=== PATIENT | male | born 1945 | race Caucasian/White ===

== ENCOUNTER → 2017-01-03 | Outpatient (CLI) | payer OTHER ==
[~2017-01-03] MED LIST: ACT30 PO; ALLO300T2 PO; ASPEC81 PO; GLIP1TAB85 PO; LEVO50TA PO; LSN/10125 PO; SITA100T3 PO
[2017-01-03 15:03] LABS: ESTIMATED AVERAGE GLUCOSE 246 mg/dl; HA1C FLAG Normal (Normal)
[2017-01-03 15:12] LABS: BLOOD UREA NITROGEN 23 mg/dl (7-18); BUN/CREATININE RATIO 17.6 (10-20); CALCIUM 9.8 mg/dl (8.5-10.1); CARBON DIOXIDE 27 mmol/L (21-32); CHLORIDE 103 mmol/L (98-107); GLUCOSE 300 mg/dl (70-99); MAGNESIUM 1.6 mg/dl (1.8-2.4); POTASSIUM 4.1 mmol/L (3.5-5.1); SODIUM 138 mmol/L (136-145)
== END | disposition home or self-care (01) ==
LOC: C.LAB 13:51
PROVIDERS: ATTEND Family Medicine
DX: I10 Essential (primary) hypertension (principal); E03.9 Hypothyroidism, unspecified; E83.42 Hypomagnesemia; E11.9 Type 2 diabetes mellitus without complications

== ENCOUNTER 2017-06-03 19:02 | Emergency (ER) | payer OTHER ==
[~2017-06-03] VITALS: Ht 182.9 cm; Wt 100.0 kg
[2017-06-03 19:12] VITALS: TEMP 36.6; Ht 182.9 cm; Wt 100.0 kg
[2017-06-03 19:32] VITALS: O2SAT 95
[2017-06-03 19:58] LABS: BASO % 0.5 %; BASO ABS # 0.04 K/uL (0-0.2); EOS % 3.7 %; EOS ABS # 0.31 K/uL (0-0.5); HEMATOCRIT 41.6 % (42-52); HEMOGLOBIN 14.6 g/dL (14.0-18.0); IG# 0.02 K/uL (0.00-0.02); LYMPH % 20.9 %; LYMPH ABS # 1.77 K/uL (1.2-3.4); MEAN CELL VOLUME 94.5 fL (80-100); MEAN CORPUSCULAR HEMOGLOBIN 33.2 pg (25-34); MEAN CORPUSCULAR HGB CONC 35.1 g/dl (32-36); MEAN PLATELET VOLUME 10.2 fL (7.4-10.4); MONO % 8.6 %; MONO ABS # 0.73 K/uL (0.11-0.59); NEUT % 66.1 %; NEUT ABS # 5.59 K/uL (1.4-6.5); PLATELET COUNT 172 K/uL (130-400); RED CELL DISTRIBUTION WIDTH CV 13.9 % (11.5-14.5); RED CELL DISTRIBUTION WIDTH SD 47.7 fL (36.4-46.3); WHITE BLOOD COUNT 8.46 K/uL (4.8-10.8)
--- NOTE | 2017-06-03 20:04 | DIAGNOSTIC IMAGING REPORT ---
CHEST ONE VIEW PORTABLE CLINICAL HISTORY: Respiratory distress COMPARISON STUDY: 09/28/2014 FINDINGS: The heart is borderline enlarged. There is no failure. There is a suboptimal inspiration. Bibasilar opacities are likely atelectatic. There is no significant pleural fluid. IMPRESSION: 1. No evidence of failure 2. No evidence of lobar consolidation 3. Bibasilar opacities, likely atelectatic Electronically signed by: Aaron Yoon M.D. 06/03/2017 8:03 PM Dictated Date/Time: 06/03/2017 8:01 PM
[2017-06-03 20:15] LABS: ALBUMIN 3.8 gm/dl (3.4-5.0); BLOOD UREA NITROGEN 15 mg/dl (7-18); CALCIUM 8.9 mg/dl (8.5-10.1); CARBON DIOXIDE 27 mmol/L (21-32); CREATININE 1.34 mg/dl (0.60-1.40); GLUCOSE 255 mg/dl (70-99); POTASSIUM 3.9 mmol/L (3.5-5.1); SODIUM 134 mmol/L (136-145)
[2017-06-03 20:20] LABS: ALKALINE PHOSPHATASE 94 U/L (45-117); ALT/SGPT 40 U/L (12-78); AST/SGOT 25 U/L (15-37); CKMB < 0.5 ng/ml (0.5-3.6); TOTAL PROTEIN 7.8 gm/dl (6.4-8.2)
[2017-06-03 20:29] LABS: INFLUENZA B ANTIGEN Neg for Influ B (NEG)
[2017-06-03] MEDS ORDERED: NVLGI/PEN SC (20:38)
[2017-06-03] MEDS ORDERED: LSN5 PO (20:38)
[2017-06-03] MEDS ORDERED: LEVO75TA5 PO (20:38)
[2017-06-03] MEDS ORDERED: RANI150T2 PO (20:38)
[2017-06-03] MEDS ORDERED: ALL300 PO (20:38)
[2017-06-03] MEDS ORDERED: INSU100I23 SC (20:38)
[2017-06-03] MEDS ORDERED: INDO-22 PO (20:38)
[2017-06-03] MEDS ORDERED: METF500T5 PO (20:38)
[2017-06-03] MEDS ORDERED: SLWMEC PO (20:41)
[2017-06-03] MEDS ORDERED: ASPI81TA28 PO (20:41)
[2017-06-03] MEDS ORDERED: CHOL2000 PO (20:41)
[2017-06-03] MEDS ORDERED: ALBUT/IPRATROP 3MG/0.5MG NEB 3 ML VIAL INH STA (20:44)
[2017-06-03] MEDS ORDERED: ALBUT/IPRATROP 3MG/0.5MG NEB 3 ML VIAL ONE (20:45)
[2017-06-03] MEDS ORDERED: AZITHROMYCIN 250 MG TAB PO STA (20:59)
[2017-06-03] MEDS ORDERED: AZIT-60 PO (21:00)
[2017-06-03] MEDS ORDERED: ALBUTEROL HFA 8 GM INHALER INH ONE (21:00)
[2017-06-03 21:25] VITALS: BP 153/80; PULSE 80; O2SAT 95
--- NOTE | 2017-06-03 23:19 | EMERGENCY ROOM VISIT NOTE ---
History Report prepared by Gretchen: Bill Lilly Under the Supervision of: Dr. Oh Avendaño M.D. First contact with patient: 19:15 Chief Complaint: COUGH Stated Complaint: COUGH PHLEM, PAIN IN CHEST History of Present Illness The patient is a 72 year old male who presents to the Emergency Room with complaints of a persistent productive cough that started 2 days ago. He states that the cough has been fairly consistent, with green and yellow phlegm. The patient says that he gets short episodes of chest and abdominal pain only with the cough when it gets bad. He states that the pain can get as bad as a 9 out of 10 in severity, but notes no pain currently. The patient adds that he has had a sore throat when the cough gets bad, and some gagging with the cough. He notes that he had bronchitis a couple years ago, and that is what he is concerned he has. The patient says that he has been using cough drops and Airborne without any relief of his symptoms. The patient notes that he has never smoked, and does not drink alcohol. He notes no recent long travels or history of blood clots. Per the patient's , the patient has finished treatment for Lyme recently. Pt denies LOC, headache, fevers, chills, diaphoresis, visual changes, neck pain, breathing difficulties, nausea, vomiting , eating or drinking difficulties, back pain, melena, hematochezia, urinary symptoms, numbness, weakness, lymphadenopathy, rash, or other complaints. Source of History: patient, spouse/significant other Onset: 2 days ago Position: other (global) Symptom Intensity: productive with green phlegm Quality: other (cough) Timing: other (persistent) Associated Symptoms: + sorethroat, + chest pain (with cough), + abdominal pain (with cough) Note: Associated symptoms: Gagging with cough. Review of Systems See HPI for pertinent positives and negatives. A total of ten systems were reviewed and were otherwise negative. Past Medical & Surgical Medical Problems: (1) Diverticulitis (2) Gout (3) Non-insulin dependent type 2 diabetes mellitus Family History FH: myocardial infarction Hypertension Social History Smoking Status: Never Smoker Alcohol Use: none Drug Use: none Marital Status: Housing Status: lives with significant other Occupation Status: unemployed Current/Historical Medications Scheduled Allopurinol (Allopurinol), 300 MG PO DAILY Aspirin (Aspirin Ec), 81 MG PO DAILY Azithromycin (Zithromax), 250 MG PO DAILY Cholecalciferol (Vitamin D3), 2,000 INTER.UNIT PO DAILY Insulin Aspart (Novolog Flexpen), 1 DOSE SC AC Insulin Glargine (Basaglar Kwikpen), 35 UNITS SC BID Levothyroxine Sodium (Levothyroxine Sodium), 75 MCG PO QAM Lisinopril (Lisinopril), 5 MG PO DAILY Magnesium Chloride (Slow-Mag Tab), 64 MG PO DAILY Metformin Hcl Er (Glucophage Er), 500 MG PO DAILY Ranitidine HCl (Ranitidine HCl), 150 MG PO BID Scheduled PRN Indomethacin (Indocin), 25 MG PO UD PRN for Gout Flare Up Allergies Coded Allergies: Sulfa Drugs (Verified Allergy, Unknown, RASH, 10/15/13) Physical Exam Vital Signs Date Time Temp Pulse Resp B/P (MAP) Pulse Ox O2 Delivery O2 Flow Rate FiO2 06/03/17 21:25 80 16 153/80 95 06/03/17 21:16 80 16 153/80 95 Room Air 06/03/17 20:50 76 16 159/88 94 Room Air 06/03/17 20:18 87 06/03/17 19:32 Room Air 06/03/17 19:32 87 18 154/87 95 06/03/17 19:32 95 Room Air 06/03/17 19:32 95 Room Air 06/03/17 19:12 36.6 110 20 206/84 97 Room Air Physical Exam GENERAL: Awake, alert, well-appearing, in no distress HENT: Normocephalic, atraumatic. Oropharynx unremarkable. EYES: Normal conjunctiva. Sclera non-icteric. NECK: Supple. No nuchal rigidity. FROM. No masses. RESPIRATORY: Few scant wheezes. No rales. Normal respiratory effort. CARDIAC: Normal rate. Normal rhythm. No murmurs. No rubs. Extremities warm and well perfused. Pulses equal. No JVD. GI: Soft, non-distended. No tenderness to palpation. No rebound or guarding. No masses. RECTAL: Deferred. MUSCULOSKELETAL: Atraumatic. Chest examination reveals no tenderness. The back is symmetrical on inspection without obvious abnormality. There is no CVA tenderness to palpation. No joint edema. LOWER EXTREMITIES: Calves are equal size bilaterally and non-tender. No edema. No discoloration. NEURO: Normal sensorium. No sensory or motor deficits noted. SKIN: No rash or jaundice noted. Medical Decision & Procedures ER Provider Diagnostic Interpretation: X-ray: Per my interpretation, radiologist review. CHEST ONE VIEW PORTABLE CLINICAL HISTORY: Respiratory distress COMPARISON STUDY: 09/28/2014 FINDINGS: The heart is borderline enlarged. There is no failure. There is a suboptimal inspiration. Bibasilar opacities are likely atelectatic. There is no significant pleural fluid. IMPRESSION: 1. No evidence of failure 2. No evidence of lobar consolidation 3. Bibasilar opacities, likely atelectatic Electronically signed by: Aaron Yoon M.D. 06/03/2017 8:03 PM Dictated Date/Time: 06/03/2017 8:01 PM Laboratory Results 06/03/17 19:40 Red Blood Count 4.40, Mean Corpuscular Volume 94.5, Mean Corpuscular Hemoglobin 33.2, Mean Corpuscular Hemoglobin Concent 35.1, Mean Platelet Volume 10.2, Neutrophils (%) (Auto) 66.1, Lymphocytes (%) (Auto) 20.9, Monocytes (%) (Auto) 8.6, Eosinophils (%) (Auto) 3.7, Basophils (%) (Auto) 0.5, Neutrophils # (Auto) 5.59, Lymphocytes # (Auto) 1.77, Monocytes # (Auto) 0.73, Eosinophils # (Auto) 0.31, Basophils # (Auto) 0.04 06/03/17 19:40 Test 06/03/17 19:40 06/03/17 19:55 White Blood Count 8.46 K/uL (4.8-10.8) Red Blood Count 4.40 M/uL (4.7-6.1) Hemoglobin 14.6 g/dL (14.0-18.0) Hematocrit 41.6 % (42-52) Mean Corpuscular Volume 94.5 fL (80-100) Mean Corpuscular Hemoglobin 33.2 pg (25-34) Mean Corpuscular Hemoglobin Concent 35.1 g/dl (32-36) Platelet Count 172 K/uL (130-400) Mean Platelet Volume 10.2 fL (7.4-10.4) Neutrophils (%) (Auto) 66.1 % Lymphocytes (%) (Auto) 20.9 % Monocytes (%) (Auto) 8.6 % Eosinophils (%) (Auto) 3.7 % Basophils (%) (Auto) 0.5 % Neutrophils # (Auto) 5.59 K/uL (1.4-6.5) Lymphocytes # (Auto) 1.77 K/uL (1.2-3.4) Monocytes # (Auto) 0.73 K/uL (0.11-0.59) Eosinophils # (Auto) 0.31 K/uL (0-0.5) Basophils # (Auto) 0.04 K/uL (0-0.2) RDW Standard Deviation 47.7 fL (36.4-46.3) RDW Coefficient of Variation 13.9 % (11.5-14.5) Immature Granulocyte % (Auto) 0.2 % Immature Granulocyte # (Auto) 0.02 K/uL (0.00-0.02) Anion Gap 8.0 mmol/L (3-11) Est Creatinine Clear Calc Drug Dose 60.1 ml/min Estimated GFR () 60.5 Estimated GFR (Non- 52.2 BUN/Creatinine Ratio 11.4 (10-20) Calcium Level 8.9 mg/dl (8.5-10.1) Total Bilirubin 0.6 mg/dl (0.2-1) Aspartate Amino Transf (AST/SGOT) 25 U/L (15-37) Alanine Aminotransferase (ALT/SGPT) 40 U/L (12-78) Alkaline Phosphatase 94 U/L (45-117) Total Creatine Kinase 34 U/L (39-308) Creatine Kinase MB < 0.5 ng/ml (0.5-3.6) Creatine Kinase MB Ratio (0-3.0) Troponin I < 0.015 ng/ml (0-0.045) Total Protein 7.8 gm/dl (6.4-8.2) Albumin 3.8 gm/dl (3.4-5.0) Globulin 4.0 gm/dl (2.5-4.0) Albumin/Globulin Ratio 0.9 (0.9-2) Influenza Type A Antigen Neg for Influ A (NEG) Influenza Type B Antigen Neg for Influ B (NEG) Laboratory results reviewed by me Medications Administered Medications (Trade) Dose Ordered Sig/Ibrahima Route Start Time Stop Time Status Last Admin Dose Admin Albuterol/ Ipratropium (Duoneb) 3 ml NOW STAT INH 06/03/17 20:44 06/03/17 20:45 DC 06/03/17 20:49 3 ML Azithromycin (Zithromax Tab) 500 mg NOW STAT PO 06/03/17 20:59 06/03/17 21:00 DC 06/03/17 21:16 500 MG Albuterol (Ventolin Hfa Inhaler) 2 puffs NOW ONCE INH 06/03/17 21:00 06/03/17 21:01 DC 06/03/17 21:16 2 PUFFS ECG Per My Interpretation Indication: chest pain Rate (beats per minute): 88 Rhythm: normal sinus Findings: no acute ischemic change, no ectopy, other (nonspecific ST changes) Comparison ECG Date: compared to September 29 2015, nonspecific changes are new laterally ED Course 2016: The patient was evaluated in room C5. A complete history and physical exam was performed. 2043: DuoNeb 3 ml INH. 2058: Zithromax Tab 500 mg PO. 2099: Ordered Ventolin Hfa Inhaler 2 puffs INH. I reevaluated the patient and he is resting comfortably. Discussed results and discharge instructions: he verbalized understanding and agreement. The patient is ready for discharge. Medical Decision Triage Nursing notes reviewed. The patient's presentation and history were concerning for cough and congestion. Etiologies such as viral syndrome, pneumonia, bronchitis, reactive airways, cardiac sources, as well as others were entertained. The patient was evaluated. He was doing relatively well. He had a slight wheeze but that cleared quickly. He was given a DuoNeb. On reassessment he was doing better. Chest x-ray did not show any evidence of pneumonia. ECG was unremarkable. Flu testing was negative. His blood work was unremarkable except for a mild elevation of his blood glucose. He does have a productive cough. Given his situation I discussed treatment with a albuterol MDI, Zithromax for antibiotic coverage, and close follow-up with the primary office. He notes he has been having some trouble controlling his blood sugar and I did provide him with some dietary information as he notes he was having trouble managing his food types. If the patient worsens he will come back to the emergency department for reevaluation. I gave my usual and customary discussion regarding this issue. By the evaluation outlined above other emergent etiologies such as those listed in the differential, as well as others, were deemed relatively unlikely. The patient was educated about the findings as listed above. All questions were answered and the patient was pleased with the treatment. Return instructions were outlined and the patient was discharged in stable condition. The patient was referred to his PCP for follow-up for a recheck of the current condition. Medication Reconcilliation Current Medication List: was personally reviewed by me Blood Pressure Screening Patient's blood pressure: Elevated blood pressure Blood pressure disposition: Referred to PCP Impression Primary Impression: Productive cough Additional Impressions: Wheezing Bronchitis Scribe Attestation The scribe's documentation has been prepared under my direction and personally reviewed by me in its entirety. I confirm that the note above accurately reflects all work, treatment, procedures, and medical decision making performed by me. Departure Information Dispostion Home / Self-Care Prescriptions Azithromycin (ZITHROMAX) 250 Mg Tab 250 MG PO DAILY, #4 TAB Prov: Oh Avendaño MD 06/03/17 Referrals Raudel Kitchen M.D. (PCP) Patient Instructions Diabetes Eating Out, Diabetes Healthy Meals, My [facility] Additional Instructions Azithromycin(Zithromax) 250mg: Take one a day for 4 additional days. All antibiotics can cause diarrhea. If this occurs and you feel worse or it does not resolve in 1-2 days follow up with your doctor or return to the Emergency Department as this could be signs of serious underlying problems. Any medication can cause an allergic reaction, stop the pills immediately and return to the ER for rash, hives, breathing difficulties, or swelling. Albuterol Inhaler: Take 2 puffs four times daily for seven days, then as needed. Acetaminophen(Tylenol) may be used for fever or pain. Use 1000mg every six hours as needed. Avoid using more than 4000mg in a 24 hour period. Rest and drink plenty of fluids. Avoid strenuous activity until your symptoms resolve and your breathing returns to normal. Return to the ER for chest pain, difficulty breathing, persistent fevers, vomiting, worsening of your condition, or as needed. Follow up with your primary physician in 2-3 days for a recheck of the current condition. Problem Qualifiers
== END 2017-06-03 21:25 | disposition home or self-care (01) ==
LOC: C.EDB 19:03 → C.EDC 21:25
DX: J40 Bronchitis, not specified as acute or chronic (principal); E11.65 Type 2 diabetes mellitus with hyperglycemia; R03.0 Elevated blood-pressure reading, without diagnosis of hypertension; M10.9 Gout, unspecified; Z79.82 Long term (current) use of aspirin; Z79.4 Long term (current) use of insulin; Z87.19 Personal history of other diseases of the digestive system; Z82.49 Family history of ischemic heart disease and other diseases of the circulatory system; Z88.2 Allergy status to sulfonamides

== ENCOUNTER 2018-05-22 11:47 | Observation (INO) ==
[2018-05-22] MEDS ORDERED: LABETALOL HCL IV 5 MG/ML 20ML IV STA (12:46)
[2018-05-22] MEDS ORDERED: ASPIRIN CHEW 324 MG PO STA (12:46)
[2018-05-22 12:55] LABS: Basophils # (auto) 0.03 K/uL (0-0.2); Basophils % (auto) 0.3 %; Eosinophils # (auto) 0.24 K/uL (0-0.5); Eosinophils % (auto) 2.4 %; Hematocrit (blood only) 43.2 % (42-52); Hemoglobin 14.9 g/dL (14.0-18.0); Immature Granulocytes # (auto) 0.02 K/uL (0.00-0.02); Immature Granulocytes % (auto) 0.2 %; Lymphocytes % (auto) 21.4 %; Mean Corpuscular Hgb Conc 34.5 g/dL (32-36); Mean Corpuscular Volume 94.9 fL (80-100); Mean Platelet Volume 10.4 fL (7.4-10.4); Monocytes # (auto) 0.51 K/uL (0.11-0.59); Monocytes % (auto) 5.2 %; Neutrophils # (auto) 6.91 K/uL (1.4-6.5); Neutrophils % (auto) 70.5 %; Platelet Count 204 K/uL (130-400); RDW Coefficient of Variation 14.1 % (11.5-14.5); Red Blood Count 4.55 M/uL (4.7-6.1); White Blood Count 9.81 K/uL (4.8-10.8)
[2018-05-22] MEDS ORDERED: SODIUM CHLORIDE 0.9% 500 ML IV SCH (13:00)
[2018-05-22 13:02] LABS: Alanine Aminotransferase 32 U/L (12-78); Albumin Level 3.9 gm/dl (3.4-5.0); Aspartate Aminotransferase 19 U/L (15-37); Blood Urea Nitrogen 19 mg/dl (7-18); Calcium 9.3 mg/dl (8.5-10.1); Carbon Dioxide 26 mmol/L (21-32); Chloride 104 mmol/L (98-107); Creatinine Clr Calc Pharmacy 71.4 ml/min; Est GFR (African American) 77.1; Est GFR (Non-African American) 66.5; Glucose 191 mg/dl (70-99); Potassium 4.1 mmol/L (3.5-5.1); Sodium 136 mmol/L (136-145)
[2018-05-22 13:07] LABS: Albumin Globulin Ratio 0.9 (0.9-2); Alkaline Phosphatase 104 U/L (45-117); Bilirubin,Total 0.5 mg/dl (0.2-1); Globulin 4.3 gm/dl (2.5-4.0); Total Protein 8.2 gm/dl (6.4-8.2); Troponin I < 0.015 ng/ml (0-0.045)
--- NOTE | 2018-05-22 13:11 | XRay Report ---
XR chest 1V portable HISTORY: 73 years-old Male Chest Pain acute atypical chest pain COMPARISON: Chest radiograph 06/03/2017 TECHNIQUE: Portable AP view of the chest FINDINGS: Cardiac mediastinal and hilar silhouettes appear unchanged. Calcification of the thoracic aortic arch . Unchanged mild pleural thickening about the left lung apex without pneumothorax, pleural effusion o r focal airspace consolidation. IMPRESSION: No acute process. The above report was generated using voice recognition software. It may contain grammatical, syntax o r spelling errors. Electronically signed by: Delano Brown M.D. 05/22/2018 1:10 PM
[2018-05-22 13:12] LABS: Prothrombin Time 10.6 Seconds (9.0-12.0)
[2018-05-22 13:53] LABS: Appearance Urine Clear (Clear); Bacteria Urine Automated Negative (Negative); Bilirubin Urine Negative (Negative); Blood Urine Trace (Negative); Color Urine Yellow; Epithelial Cell Urine Auto 0-5 /lpf (0-5); Glucose Urine UA Negative (Negative); Ketones Urine Negative (Negative); Leukocyte Esterase Urine Negative (Negative); Nitrite Urine Negative (Negative); Protein Urine Negative (Negative); RBC Urine Automated 0-4 /hpf (0-4); Urobilinogen Urine Negative (Negative); WBC Urine Automated 0 /hpf (0-5)
--- NOTE | 2018-05-22 14:20 | History & Physical Report ---
"Date of Service May 22, 2018 Assessment & Plan (1) Hypertensive urgency: -His outpatient clinic notes had documented normal vital signs BP 148/82 | Pulse 78 | Temp (Src) 97.2 (Tympanic) | Resp 18. -Review of typical outpatient blood pressure readings as documented by patient's with some systolic readings above 160 and occasional systolic of 180 while on lisinopril 10 mg daily alone -In the Emergency room, patient noted to have hypertension/hypertensive urgency with blood pressure 229/82 and repeat blood pressure 181/92. Patient received labetalol 10 mg IV with IV fluids -After ED physician had presented patient to hospitalist for further observation, patient's vitals relatively normal with blood pressure 159/81 and heart rate 59 bpm. -will give addition lisinopril 20 mg later today -will monitor on telemetry and adjust further blood pressure medications if needed -will plan on increasing home dose lisinopril to 40 mg daily -avoid NSAID Abnormal EKG -sent to emergency room by outpatient medical provider for further evaluation because of abnormal EKG in clinic shows LVH with ST and T wave changes in the lateral leads -was given aspirin 324 mg in the ED, continue daily aspirin -telemetry monitoring -initial troponin negative, trend troponins -no recent outpatient echocardiogram available -obtain echocardiogram -if echocardiogram abnormal then would consider cardiology service evaluation and/or stress test -patient's reports patient no longer taking pravastatin 10 mg daily, check lipid panel, if lipid panel elevated or if concern for cardiac injury from echocardiogram then high dose statin should be considered Type 2 diabetes mellitus on ribbon blockmaker current use of insulin -Review of typical at home glucose readings as documented by patient's while on Basgalar 50 units qhs and a sliding scale insulin with glucose levels in 200s but generally under 300s -Continue long acting insulin as inpatient as 50 units HS, sliding scale aspart as per protocol, check HbA1c -hold home dose metformin while inpatient -diabetic diet Hypothyroidism -continue home dose levothyroxine -Check TSH Generalized weakness -PT/OT evaluation -check TSH -on vitamin D supplementation at home -no active gout; can resume allopurinol once cardiac workup is completed History of asthma Chest X ray negative for pneumonia hold off albuterol unless needed Code Status: Full Code : Avis [phone] History of Present Illness Primary Care Provider: Jens Villa is a 73 year old male who presents to outpatient clinic to see Mendy Brewer PA-C (Physician Newspaper Reporter) and sent to emergency room for further evaluation because of abnormal EKG in clinic shows LVH with ST and T wave changes in the lateral leads and patient may have had reported chest pain and was being a poor historian when accompanied by his that there was concern for confusion (patient also had miscellaneous complaints about having poor energy since being diagnosed with bronchitis on 04/27/2018 and treated with Zithromax and albuterol inhaler at that time. His outpatient clinic notes had documented normal vital signs BP 148/82 | Pulse 78 | Temp (Src) 97.2 (Tympanic) | Resp 18. Patient declined transport by EMS and instead took personal transport to be driven to the hospital In the Emergency room, patient noted to have hypertension/hypertensive urgency with blood pressure 229/82 and repeat blood pressure 181/92 Patient received labetalol 10 mg IV with IV fluids also had aspirin 324 given to patient as EKG on presentation with heart rate 59 bpm and computer reading St and T wave abnormality and consider lateral ischemia After ED physician had presented patient to hospitalist for further observation, patient's vitals relatively normal with blood pressure 159/81 and heart rate 59 bpm. Patient is alert and oriented with at bedside. He denies active chest pain and denies mentioning chest pain to outpatient provider. He said his main concern for going to primary care doctor was because he had coughing spell earlier today and he was concerned for pneumonia. Patient reports feeling less energy recently but denies problems with walking Review of typical at home blood pressure readings as documented by patient's with some systolic readings above 160 and occasional systolic of 180 while on lisinopril 10 mg daily alone Review of typical at home glucose readings as documented by patient's while on Basgalar 50 units qhs and a sliding scale insulin with glucose levels in 200s but generally under 300s Patient denies smoking history Family history of mother with heart attack at age 54 Family History of father with COPD Allergies Allergy/AdvReac Type Severity Reaction Status Date / Time Sulfa (Sulfonamide Allergy Unknown RASH Verified 01/02/18 14:13 Antibiotics) Home Medications Home Medications Medication Instructions Recorded Confirmed Type allopurinol 300 mg PO DAILY 01/02/18 05/22/18 History aspirin [Aspir-81] 81 mg PO DAILY 01/02/18 05/22/18 History cholecalciferol (vitamin D3) 1,000 unit PO DAILY 01/02/18 05/22/18 History [Vitamin D3] indomethacin 25 mg PO QID 01/02/18 05/22/18 History insulin aspart U-100 1 dose SUBCUT AC 01/02/18 05/22/18 History levothyroxine 75 mcg PO DAILY 01/02/18 05/22/18 History lisinopril 10 mg PO DAILY 01/02/18 05/22/18 History magnesium chloride [Mag 64] 64 mg PO DAILY 01/02/18 05/22/18 History ranitidine HCl 150 mg PO BID 01/02/18 05/22/18 History albuterol sulfate [Ventolin HFA] 2 puff INHALATION Q4H PRN 05/22/18 05/22/18 History insulin glargine [Basaglar KwikPen 50 units SUBCUT HS 05/22/18 05/22/18 History U-100 Insulin] metformin 500 mg PO QAM 05/22/18 05/22/18 History Past Med/Surg History Medical History Diverticulitis (Resolved) 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) Bronchitis (Acute) Surgical History History of partial colectomy Family History Other Family history non-contributory Social History Preferred Language: Cuban Feels Safe at Home: Yes Smoking Status: Never smoker Review of Systems All systems reviewed & are unremarkable except as noted in HPI & below (pertinent review of systems that patient denies chest pain or acute shortness of breath. reports reduced energy recently. denies problems with ambulation. has had episode of coughing. denies other cardiac-respiratory symptoms, denies focal motor or neurological deficits, denies GI problems) Physical Exam Vital Signs (Past 24 Hours): Last Vital Signs Temp 36.4 C L 05/22/18 11:57 Pulse 59 L 05/22/18 14:16 Resp 16 05/22/18 14:16 BP 158/86 H 05/22/18 14:16 Pulse Ox 97 05/22/18 14:16 Eyes: PERRL, conjunctivae normal, anicteric sclerae EOM intact bilaterally ENMT: external ear and nose normal, oropharynx normal Neck: trachea midline, no thyromegaly Respiratory: normal respiratory effort, lungs clear to auscultation Cardiovascular: Rate/Rhythm: regular rhythm and + bradycardic Gastrointestinal (Abdomen): normal bowel sounds, soft, nontender, no hepatosplenomegaly Musculoskeletal: Head/Neck/Chest: normocephalic and head atraumatic Neurologic: PERRL, EOMI, accommodation nl, no face palsy, no dysarthria Psychiatric: A+Ox3, euthymic affect"
[2018-05-22] MEDS ORDERED: GLUCOSE 10 TABS/TUBE PO PRN (15:32)
[2018-05-22] MEDS ORDERED: GLUCAGON FOR INJ 1 MG VIAL SQ PRN (15:32)
[2018-05-22] MEDS ORDERED: DEXTROSE 50% 50 ML SYRINGE IV PRN (15:32)
[2018-05-22] MEDS ORDERED: CARBOHYDRATES FOR HYPOGLYCEMIA PO PRN (15:32)
[2018-05-22] MEDS ORDERED: GLUCOSE 40% GEL 15 GM TUBE PO PRN (15:32)
[2018-05-22] MEDS ORDERED: LISINOPRIL 20 MG TAB PO ONE (17:00)
[2018-05-22] MEDS: INSULIN ASPART 100 UNITS/ML 3 ML PEN SC SCH ×2 (17:18→21:02)
--- NOTE | 2018-05-22 18:53 | Emergency Department Note ---
Entered by Shakeel Beal acting as a scribe for Ranjith Cool DO History of Present Illness General Chief complaint: Cardiac Assessment Stated complaint: HYPERTENSION,ABNORMAL EKG Source: patient Limitations: no limitations History of Present Illness Provider complaint: fatigue Onset (ago): week(s) (3) Pain Consistency: + other (worsening) Maximum Pain Intensity: 0 Quality: + other (fatigue) Associated symptoms: no chest pain, no headaches and no weakness Treatments prior to arrival: other (Antibiotic - Z-tisha) The patient is a 73 year old male who presents to the Emergency Room with complaints of worsening weakness over the past 3 weeks. The patient states that he has been "tired" since he was discharged from an inpatient stay. He was admitted to the hospital on the april for a bronchitis. He was discharged home on a Z-tisha. He has finished this antibiotic course. The patient states that he did have a "coughing fit" this morning while he was in the shower, but has not coughed much before or since. The patient denies any other weakness, headache, or chest pain. He does note that he feels slightly short of breath when he is walking around. He confirms that he is taking his hypertension medication, but is not taking his statin. The patient's at bedside adds that he has had a difficult time performing his normal daily tasks recently, such as checking his blood sugar. She describes that he needs to "think about it more." Home Medications Home Medications Medication Instructions Recorded Confirmed Type allopurinol 300 mg PO DAILY 01/02/18 05/22/18 History aspirin [Aspir-81] 81 mg PO DAILY 01/02/18 05/22/18 History cholecalciferol (vitamin D3) 1,000 unit PO DAILY 01/02/18 05/22/18 History [Vitamin D3] indomethacin 25 mg PO QID 01/02/18 05/22/18 History insulin aspart U-100 1 dose SUBCUT AC 01/02/18 05/22/18 History levothyroxine 75 mcg PO DAILY 01/02/18 05/22/18 History lisinopril 10 mg PO DAILY 01/02/18 05/22/18 History magnesium chloride [Mag 64] 64 mg PO DAILY 01/02/18 05/22/18 History ranitidine HCl 150 mg PO BID 01/02/18 05/22/18 History albuterol sulfate [Ventolin HFA] 2 puff INHALATION Q4H PRN 05/22/18 05/22/18 History insulin glargine [Basaglar KwikPen 50 units SUBCUT HS 05/22/18 05/22/18 History U-100 Insulin] metformin 500 mg PO QAM 05/22/18 05/22/18 History Allergies Allergy/AdvReac Type Severity Reaction Status Date / Time Sulfa (Sulfonamide Allergy Unknown RASH Verified 01/02/18 14:13 Antibiotics) Past Med/Surg History Medical History Diverticulitis (Resolved) 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 and A total of 10 systems reviewed and were otherwise negative Physical Exam Vital Signs Vital Signs - 24 hr 05/22/18 11:57 05/22/18 12:16 05/22/18 12:30 Temperature 36.4 C L Temperature Source Oral Sepsis Recent Fever Within 48 Hours No Sepsis New/Unexplained Change in Mental Status No Sepsis Action Taken by Nursing No Action Required Pulse Rate 67 Pulse Rate [Left] 64 Pulse Rhythm Regular Pulse Rhythm [Left] Pulse Strength Normal Pulse Strength [Left] Respiratory Rate 18 20 Respiratory Effort / Characteristics Non-Labored Spontaneous Non-Labored Spontaneous Respiratory Depth Normal Normal Respiratory Pattern Blood Pressure 229/82 H Blood Pressure [Left Arm] Blood Pressure Mean 131 Blood Pressure Mean [Left Arm] Blood Pressure Position [Left Arm] Pulse Oximetry 98 98 98 Oxygen Delivery Method Room Air Room Air Room Air 05/22/18 13:19 05/22/18 13:36 05/22/18 14:16 Temperature Temperature Source Sepsis Recent Fever Within 48 Hours Sepsis New/Unexplained Change in Mental Status Sepsis Action Taken by Nursing Pulse Rate Pulse Rate [Left] 60 55 L 59 L Pulse Rhythm Pulse Rhythm [Left] Pulse Strength Pulse Strength [Left] Respiratory Rate 19 20 16 Respiratory Effort / Characteristics Non-Labored Spontaneous Non-Labored Spontaneous Non-Labored Spontaneous Respiratory Depth Respiratory Pattern Blood Pressure Blood Pressure [Left Arm] 181/92 H 159/81 H 158/86 H Blood Pressure Mean Blood Pressure Mean [Left Arm] 121 107 110 Blood Pressure Position [Left Arm] Lying Lying Pulse Oximetry 97 97 97 Oxygen Delivery Method Room Air Room Air Room Air 05/22/18 15:16 05/22/18 16:01 05/22/18 16:49 Temperature 36.3 C L Temperature Source Oral Sepsis Recent Fever Within 48 Hours Sepsis New/Unexplained Change in Mental Status Sepsis Action Taken by Nursing Pulse Rate 58 L 61 Pulse Rate [Left] 54 L Pulse Rhythm Pulse Rhythm [Left] Pulse Strength Pulse Strength [Left] Respiratory Rate 20 18 Respiratory Effort / Characteristics Respiratory Depth Respiratory Pattern Blood Pressure 151/88 H Blood Pressure [Left Arm] 174/82 H Blood Pressure Mean Blood Pressure Mean [Left Arm] 112 Blood Pressure Position [Left Arm] Left Lateral Pulse Oximetry 97 97 Oxygen Delivery Method Room Air Room Air 05/22/18 16:50 05/22/18 17:57 Temperature 36.3 C L Temperature Source Oral Sepsis Recent Fever Within 48 Hours Sepsis New/Unexplained Change in Mental Status Sepsis Action Taken by Nursing Pulse Rate Pulse Rate [Left] 54 L Pulse Rhythm Pulse Rhythm [Left] Regular Pulse Strength Pulse Strength [Left] Normal Respiratory Rate 18 Respiratory Effort / Characteristics Non-Labored Spontaneous Non-Labored Spontaneous Respiratory Depth Normal Normal Respiratory Pattern Regular Regular Blood Pressure Blood Pressure [Left Arm] 174/82 H Blood Pressure Mean Blood Pressure Mean [Left Arm] 112 Blood Pressure Position [Left Arm] Lying Pulse Oximetry 97 Oxygen Delivery Method Room Air Room Air GENERAL: Sitting up in bed, alert, well appearing, well nourished, no distress, non-toxic EYE EXAM: normal conjunctiva. OROPHARYNX: no exudate, no erythema, lips, buccal mucosa, and tongue normal and mucous membranes are moist NECK: supple, no nuchal rigidity, no adenopathy, non-tender LUNGS: Clear to auscultation. Normal chest wall mechanics HEART: no murmurs, S1 normal and S2 normal ABDOMEN: abdomen soft, non-tender, normo-active bowel, sounds, no masses, no rebound or guarding. BACK: Back is symmetrical on inspection and there is no deformity, no midline tenderness, no CVA tenderness. SKIN: no rashes and no bruising UPPER EXTREMITIES: upper extremities are grossly normal. LOWER EXTREMITIES: No pitting edema. NEURO EXAM: Normal sensorium, cranial nerves II-XII grossly intact, normal speech, no gross weakness of arms, no gross weakness of legs. Course ED COURSE: Vital signs were reviewed and showed hypertension. The patients medical record was reviewed The above diagnostic studies were performed and reviewed. ED treatments and interventions as stated above. 1240: The patient was evaluated in room C1B . A complete history and physical examination was performed. 1330: I checked on the patient. His sytolic pressure is down to 158. 1334: I reviewed the patient's case with Dr. Lee Quispe Hospitalist. He will evaluate the patient for further management. 1423: Upon reevaluation, the patient is resting in bed. I discussed my findings with the patient and he understands and agrees with the treatment plan. Based on the patients age, coexisting illnesses, exam and lab findings the decision to treat as an inpatient was made. The patient remained stable while under my care. The patient will be evaluated for further management. Administered Medications Insulin Aspart (Novolog Flexpen) 0 units SC ACHS [facility] Stop: 06/21/18 16:29 Last Admin: 05/22/18 17:18 Dose: Not Given Documented by: [id number] Cosigned by: [id number] Insulin Glargine (Lantus Per Unit) 50 units SQ 1900 ONE Stop: 05/22/18 19:01 Last Admin: 05/22/18 18:40 Dose: 50 units Documented by: [id number] Cosigned by: [id number] Discontinued Medications Aspirin (Aspirin) 324 mg PO NOW STA Stop: 05/22/18 12:47 Last Admin: 05/22/18 13:14 Dose: 324 mg Documented by: [id number] Sodium Chloride (Nss) 500 mls @ 999 mls/hr IV .Q31M IAN Stop: 05/22/18 13:30 Last Infusion: 05/22/18 13:46 Dose: 0 mls/hr Documented by: [id number] Admin: 05/22/18 13:14 Dose: 999 mls/hr Documented by: [id number] Labetalol HCl (Normodyne) 10 mg IV NOW STA Stop: 05/22/18 12:47 Last Admin: 05/22/18 13:14 Dose: 10 mg Documented by: [id number] Cosigned by: [id number] Lisinopril (Zestril) 20 mg PO ONCE ONE Stop: 05/22/18 17:01 Last Admin: 05/22/18 17:19 Dose: 20 mg Documented by: [id number] Medical Decision Making Differential Diagnosis Differential diagnosis: Etiologies such as shingles, musculoskeletal pain, pericarditis, myocarditis, cardiac ischemia, pericardial tamponade, pneumonia, pneumothorax, pleural effusion, hemothorax, pleurisy, aortic pathology, pulmonary embolism, intra- abdominal process, as well as others were considered. Medical Records Attestation: I reviewed the patient's medical records. Home Medications Current Medication List: was personally reviewed by me Laboratory Data Attestation: I reviewed the patient's lab results. Result diagrams: 05/22/18 12:20 05/22/18 12:20 Lab Results 05/22/18 05/22/18 05/22/18 Range/Units 12:20 12:20 12:20 WBC 9.81 (4.8-10.8) K/uL RBC 4.55 L (4.7-6.1) M/uL Hgb 14.9 (14.0-18.0) g/dL Hct 43.2 (42-52) % MCV 94.9 (80-100) fL MCH 32.7 (25-34) pg MCHC 34.5 (32-36) g/dL RDW Std Deviation 49.0 H (36.4-46.3) fL RDW Coeff of Fallon 14.1 (11.5-14.5) % Plt Count 204 (130-400) K/uL MPV 10.4 (7.4-10.4) fL Immature Gran % (Auto) 0.2 % Neut % (Auto) 70.5 % Lymph % (Auto) 21.4 % [place] % (Auto) 5.2 % Eos % (Auto) 2.4 % Baso % (Auto) 0.3 % Immature Gran # (Auto) 0.02 (0.00-0.02) K/uL Neut # (Auto) 6.91 H (1.4-6.5) K/uL Lymph # (Auto) 2.10 (1.2-3.4) K/uL [place] # (Auto) 0.51 (0.11-0.59) K/uL Eos # (Auto) 0.24 (0-0.5) K/uL Baso # (Auto) 0.03 (0-0.2) K/uL PT 10.6 (9.0-12.0) Seconds INR 1.0 (0.9-1.1) Sodium 136 (136-145) mmol/L Potassium 4.1 (3.5-5.1) mmol/L Chloride 104 (98-107) mmol/L Carbon Dioxide 26 (21-32) mmol/L Anion Gap 6.0 (3-11) BUN 19 H (7-18) mg/dl Creatinine 1.09 (0.6-1.4) mg/dl Est Cr Clr Drug Dosing 71.4 ml/min Est GFR ( Amer) 77.1 Est GFR (Non-Af Amer) 66.5 BUN/Creatinine Ratio 17.0 (10-20) Glucose 191 H (70-99) mg/dl POC Glucose (70-99) Calcium 9.3 (8.5-10.1) mg/dl Total Bilirubin 0.5 (0.2-1) mg/dl AST 19 (15-37) U/L ALT 32 (12-78) U/L Alkaline Phosphatase 104 (45-117) U/L Troponin I < 0.015 (0-0.045) ng/ml Total Protein 8.2 (6.4-8.2) gm/dl Albumin 3.9 (3.4-5.0) gm/dl Globulin 4.3 H (2.5-4.0) gm/dl Albumin/Globulin Ratio 0.9 (0.9-2) Lipase 219 (73-393) U/L Urine Color Urine Appearance (Clear) Urine pH (4.5-7.5) Ur Specific Murphy (1.000-1.030) Urine Protein (Negative) Urine Glucose (UA) (Negative) Urine Ketones (Negative) Urine Blood (Negative) Urine Nitrite (Negative) Urine Bilirubin (Negative) Urine Urobilinogen (Negative) Ur Leukocyte Esterase (Negative) Urine WBC (Auto) (0-5) /hpf Urine RBC (Auto) (0-4) /hpf U Hyaline Cast (Auto) (0-5) /lpf U Epithel Cells (Auto) (0-5) /lpf Urine Bacteria (Auto) (Negative) 05/22/18 05/22/18 Range/Units 13:40 16:46 WBC (4.8-10.8) K/uL RBC (4.7-6.1) M/uL Hgb (14.0-18.0) g/dL Hct (42-52) % MCV (80-100) fL MCH (25-34) pg MCHC (32-36) g/dL RDW Std Deviation (36.4-46.3) fL RDW Coeff of Fallon (11.5-14.5) % Plt Count (130-400) K/uL MPV (7.4-10.4) fL Immature Gran % (Auto) % Neut % (Auto) % Lymph % (Auto) % [place] % (Auto) % Eos % (Auto) % Baso % (Auto) % Immature Gran # (Auto) (0.00-0.02) K/uL Neut # (Auto) (1.4-6.5) K/uL Lymph # (Auto) (1.2-3.4) K/uL [place] # (Auto) (0.11-0.59) K/uL Eos # (Auto) (0-0.5) K/uL Baso # (Auto) (0-0.2) K/uL PT (9.0-12.0) Seconds INR (0.9-1.1) Sodium (136-145) mmol/L Potassium (3.5-5.1) mmol/L Chloride (98-107) mmol/L Carbon Dioxide (21-32) mmol/L Anion Gap (3-11) BUN (7-18) mg/dl Creatinine (0.6-1.4) mg/dl Est Cr Clr Drug Dosing ml/min Est GFR ( Amer) Est GFR (Non-Af Amer) BUN/Creatinine Ratio (10-20) Glucose (70-99) mg/dl POC Glucose 118 H (70-99) Calcium (8.5-10.1) mg/dl Total Bilirubin (0.2-1) mg/dl AST (15-37) U/L ALT (12-78) U/L Alkaline Phosphatase (45-117) U/L Troponin I (0-0.045) ng/ml Total Protein (6.4-8.2) gm/dl Albumin (3.4-5.0) gm/dl Globulin (2.5-4.0) gm/dl Albumin/Globulin Ratio (0.9-2) Lipase (73-393) U/L Urine Color Yellow Urine Appearance Clear (Clear) Urine pH 5.0 (4.5-7.5) Ur Specific Murphy 1.020 (1.000-1.030) Urine Protein Negative (Negative) Urine Glucose (UA) Negative (Negative) Urine Ketones Negative (Negative) Urine Blood Trace H (Negative) Urine Nitrite Negative (Negative) Urine Bilirubin Negative (Negative) Urine Urobilinogen Negative (Negative) Ur Leukocyte Esterase Negative (Negative) Urine WBC (Auto) 0 (0-5) /hpf Urine RBC (Auto) 0-4 (0-4) /hpf U Hyaline Cast (Auto) 1-5 (0-5) /lpf U Epithel Cells (Auto) 0-5 (0-5) /lpf Urine Bacteria (Auto) Negative (Negative) Imaging Data Attestation: I personally reviewed and interpreted this imaging study as fo llows: Radiologist's Impression: XR chest 1V portable HISTORY: 73 years-old Male Chest Pain acute atypical chest pain COMPARISON: Chest radiograph 06/03/2017 TECHNIQUE: Portable AP view of the chest FINDINGS: Cardiac mediastinal and hilar silhouettes appear unchanged. Calcification of the thoracic aortic arch. Unchanged mild pleural thickening about the left lung apex without pneumothorax, pleural effusion or focal airspace consolidation. IMPRESSION: No acute process. The above report was generated using voice recognition software. It may contain grammatical, syntax or spelling errors. Electronically signed by: Delano Brown M.D. 05/22/2018 1:10 PM ECG Data Attestation: I personally reviewed and interpreted this ECG as follows: Indication: weakness Rate (beats per minute): 58 Rhythm: sinus bradycardia Findings: + other (Normal axis, ST-flattening in high lateral), + ST depression (V4-V6) and + T-wave inversion (V4-V6) Comparison ECG Date: from (09/28/2014) Change: the following changes noted (V4-V6 and high lateral changes are new) Blood Pressure Blood Pressure Findings: Elevated blood pressure Blood Pressure Disposition: Referred to patients primary care provider MIROSLAVA Narrative Patient is a 73-year-old male who presents the ER referred in by his PCP as he has not been feeling well and has had some mild shortness of breath associated with weakness of a cough. EKG was performed in the office and I did review this which showed ST depressions and flipped T waves in V4 through V6. This is new when compared to previous old EKGs. Patient was initially hypertensive at 223 systolic when he came into the ER. This was repeated. As he was significantly hypertensive IV was established blood work was obtained and he was given IV labetalol. He was also given aspirin. Labs were obtained and showed no significant leukocytosis or anemia. INR was unremarkable. BMP along with bilirubin LFTs and troponin was negative. Lipase was normal. UA unremarkable. Under closely and admitted to the hospitalist with improved hypertension following Lopressor and EKG changes. Impression & Plan Hypertensive urgency, Weakness, Acute electrocardiogram changes Critical Care Time Critical Care Time: Yes Discharge Plan Visit Data *Final* Discharge Date/Time: 05/22/18 15:16 Chief Complaint: Cardiac Assessment Stated Complaint: HYPERTENSION,ABNORMAL EKG ED Provider: Ranjith Cool Discharge Problem: Hypertensive urgency, Weakness, Acute electrocardiogram changes Patient Disposition: Admitted As Inpatient Discharge Instructions Interventions: ED Discharge Assessment Last Done: 05/22/18 15:16 The scribe's documentation has been prepared under my direction and personally reviewed by me in its entirety. I confirm that the note above accurately reflects all work, treatment, procedures, and medical decision making performed by me.
[2018-05-22] MEDS ORDERED: LANTUS PER UNIT CHARGE SQ ONE (19:00)
[2018-05-22 19:14] LABS: Troponin I < 0.015 ng/ml (0-0.045)
[2018-05-22] MEDS ORDERED: HydrALAZINE 10 MG TAB PO PRN (19:25)
[2018-05-22] MEDS: HEPARIN SOD 5,000 UNIT/0.5 ML VIAL SQ SCH (21:03)
[2018-05-22] MEDS: ATORVASTATIN 40 MG TAB PO SCH (21:20)
[2018-05-23] MEDS: HEPARIN SOD 5,000 UNIT/0.5 ML VIAL SQ SCH ×3 (05:18→21:54)
[2018-05-23] MEDS: LEVOTHYROXINE SODIUM 75 MCG TABLET PO SCH (05:19)
[2018-05-23 07:31] LABS: BUN Creatinine Ratio 15.1 (10-20); Calcium 8.7 mg/dl (8.5-10.1); Creatinine Clr Calc Pharmacy 67.2 ml/min; Est GFR (African American) 71.5; Est GFR (Non-African American) 61.7; Potassium 3.7 mmol/L (3.5-5.1)
[2018-05-23 07:45] LABS: Estimated Average Glucose 217 mg/dl; Hemoglobin A1C 9.2 % (4.5-5.6)
[2018-05-23] MEDS: INSULIN ASPART 100 UNITS/ML 3 ML PEN SC SCH ×4 (07:46→21:52)
[2018-05-23] MEDS: LISINOPRIL 40 MG TAB PO SCH (07:47)
[2018-05-23] MEDS: ATORVASTATIN 40 MG TAB PO SCH (07:47)
[2018-05-23] MEDS: ASPIRIN 81 MG ECTAB PO SCH (07:47)
[2018-05-23] MEDS: CHOLECALCIFEROL 1,000 UNITS TAB PO SCH (07:48)
[2018-05-23] MEDS ORDERED: PRAVASTATIN SOD 10 MG TAB PO SCH (09:00)
[2018-05-23] MEDS: SPIRONOLACTONE 25 MG TAB PO SCH (12:48)
[2018-05-23] MEDS: CARVEDILOL 3.125 MG TAB PO SCH ×2 (12:48→21:52)
--- NOTE | 2018-05-23 14:47 | Cardiology Consultation ---
Date of Consultation May 23, 2018 Assessment & Plan (1) Hypertensive urgency: The patient's initial blood pressure upon arrival to the emergency room yesterday 11:57 AM was 229/82. For the most part continued hypertension was noted overnight last night, with systolic blood pressure readings for the most part in the range of 150s-170s. His lisinopril dose has already been increased to 40 mg by the admitting team. I am going to add carvedilol, and low-dose spironolactone. (2) Abnormal EKG: The patient denies any symptoms suggestive of unstable angina at present. It is difficult to determine if the EKG represents LVH with strain pattern in the setting of uncontrolled hypertension, or if it is indicative of underlying coronary heart disease. Of note the patient had a prior EKG of diagnostic quality performed at this institution in 2014 with normal lateral T wave is noted at that time per my review. There are no prior tracings available in the [facility] system as he had recently transitioned his care to his current PCP. After further discussion with the patient, he did have a past cardiology evaluation with Dr. Archer of [facility] in September,. He had an exercise stress echocardiogram at that time. The baseline EKG was normal. The stress echo was negative having achieved 6 minutes on a standard Michael protocol, and the blood pressure response to exercise was normal. Both the EKG changes as well as the elevated blood pressure appeared to therefore be new compared to 2015. The patient's troponin has been negative x2 sets so far, but they were performed yesterday, with no third set so far today. I will therefore request a stat troponin for reassessment. In the absence of the symptoms suggestive of an acute coronary syndrome, will likely proceed with further evaluation to include stress testing once his blood pressure is better controlled. Of note, I initially reviewed his echocardiogram yesterday and was concerned about a focal wall motion abnormality limited to the basal portion of the inferior wall. After the patient was assessed clinically today, and with the knowledge of his history, I reviewed the echocardiogram images again today, and I believe that mild to moderate concentric left ventricular hypertrophy is present as well as a sigmoid shaped septum. I do not think there is a wall motion abnormality, but rather this is due to the sigmoid septum that is partially still visualized in the apical 2 chamber view. On further images elsewhere on the echo inferior wall is better visualized, and I believe the wall motion is normal. I would therefore recommend the echocardiogram report. DVT prophylaxis, continue subcutaneous heparin. History of Present Illness Attending Physician: Reji Andersen MD History of Present Illness Adrian Villa is a 73 year old male seen in cardiology consultation per the request of Dr Howard of the [facility] for the evaluation of elevated blood pressure and abnormal EKG. The patient was seen and examined in room 277-2. He was accompanied by his spouse and his son at the bedside. He was in no acute distress. The patient and his spouse note that over the last several weeks, he has had elevated blood sugars as well as elevated blood pressure readings at home. He has had frequent blood pressure readings at home with systolic pressures in the range of 170. This is somewhat unusual for him as he had previously had controlled blood pressure. He notes no chest discomfort or headache. He notes no zen exertional shortness of breath, but does note that he does not have the stamina that he had at one point. He was seen by family medicine at [facility] yesterday and was noted to have hypertension. An EKG was performed revealing lateral T wave inversions and he was therefore referred to the emergency room for further assessment. Allergies Allergy/AdvReac Type Severity Reaction Status Date / Time Sulfa (Sulfonamide Allergy Unknown RASH Verified 01/02/18 14:13 Antibiotics) Home Medications Home Medications Medication Instructions Recorded Confirmed Type allopurinol 300 mg PO DAILY 01/02/18 05/22/18 History aspirin [Aspir-81] 81 mg PO DAILY 01/02/18 05/22/18 History cholecalciferol (vitamin D3) 1,000 unit PO DAILY 01/02/18 05/22/18 History [Vitamin D3] indomethacin 25 mg PO QID 01/02/18 05/22/18 History insulin aspart U-100 1 dose SUBCUT AC 01/02/18 05/22/18 History levothyroxine 75 mcg PO DAILY 01/02/18 05/22/18 History lisinopril 10 mg PO DAILY 01/02/18 05/22/18 History magnesium chloride [Mag 64] 64 mg PO DAILY 01/02/18 05/22/18 History ranitidine HCl 150 mg PO BID 01/02/18 05/22/18 History albuterol sulfate [Ventolin HFA] 2 puff INHALATION Q4H PRN 05/22/18 05/22/18 History insulin glargine [Basaglar KwikPen 50 units SUBCUT HS 05/22/18 05/22/18 History U-100 Insulin] metformin 500 mg PO QAM 05/22/18 05/22/18 History Patient History Medical History Diverticulitis (Resolved) 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) Bronchitis (Acute) Surgical History History of partial colectomy Family History Other Family history non-contributory Social History Communication Ability: Effective Beliefs That Will Affect Care: None Current Living Situation: Spouse Other Information That Helps Us Care for You: No Feels Safe at Home: Yes Safety Concerns: Feels Safe At This Time Smoking Status: Never smoker Hx Alcohol Use: No Hx Substance Use: No Review of Systems A 10 point review of systems is reviewed and is negative with the exception of that noted above Physical Exam Vital Signs (Past 24 Hours): Last Vital Signs Temp 36.2 C L 05/23/18 11:59 Pulse 66 05/23/18 11:59 Resp 18 05/23/18 11:59 BP 165/87 H 05/23/18 11:59 Pulse Ox 98 05/23/18 13:53 Constitutional: WD/WN, vitals as above Respiratory: normal respiratory effort, lungs clear to auscultation Cardiovascular: RRR, no murmur, no edema Gastrointestinal (Abdomen): Percussion/Palpation: abdomen soft; abdomen nontender and no guarding Skin: no rashes, warm and dry Neurologic: moves all extremities and awake; no focal motor deficits Results & Data Laboratory Results Cardiac Enzymes 05/22/18 Range/Units 18:26 Troponin I < 0.015 (0-0.045) ng/ml Lipids 05/23/18 Range/Units 06:19 Triglycerides 132 (0-150) mg/dl Cholesterol 179 (0-200) mg/dl HDL Cholesterol 40 mg/dl Cholesterol/HDL Ratio 5 Comprehensive Metabolic Panel 05/23/18 Range/Units 06:19 Sodium 139 (136-145) mmol/L Potassium 3.7 (3.5-5.1) mmol/L Chloride 106 (98-107) mmol/L Carbon Dioxide 26 (21-32) mmol/L BUN 17 (7-18) mg/dl Creatinine 1.16 (0.6-1.4) mg/dl Glucose 78 (70-99) mg/dl Calcium 8.7 (8.5-10.1) mg/dl Intake and Output 05/22/18 05/23/18 05/23/18 22:59 06:59 14:59 Intake Total 275 / 1025 250 / 1025 660 / 660 Balance 275 / 1025 250 / 1025 660 / 660 Intake: Oral 275 / 525 250 / 525 660 / 660 Other: Other Intake Source NPO @ 12 # Unmeasured Voids 3 2 Weight 96 kg 96.3 kg 96.3 kg Patient Weight 05/24/18 06:59 Weight 96.3 kg Diagnostic Findings EKG performed 05/22/18 at 12:16 AM and reviewed independently revealed sinus bradycardia 59 bpm with lateral T wave inversions, and high voltage, possibly consistent with underlying LVH . There is a prior EKG from May 2017, but artifact is noted in the lateral precordial leads precluding comparison. An EKG dating back to 2014 revealed upright normal T waves. Repeat EKG performed today revealed ongoing lateral T wave inversions. Once again new compared to 2014. Medications Administered Current Inpatient Medications Aspirin (Ecotrin Ectab) 81 mg PO DAILY IAN Stop: 06/22/18 08:59 Last Admin: 05/23/18 07:47 Dose: 81 mg Documented by: Atorvastatin Calcium (Lipitor) 40 mg PO QAM IAN Stop: 06/21/18 19:44 Last Admin: 05/23/18 07:47 Dose: Not Given Documented by: Carvedilol (Coreg) 3.125 mg PO BID IAN Stop: 06/22/18 11:14 Last Admin: 05/23/18 12:48 Dose: 3.125 mg Documented by: Dextrose (Dextrose 50%) 25 - 50 ml IV UD PRN; Protocol PRN Reason: Hypoglycemia Protocol Stop: 06/21/18 15:31 Glucagon (Glucagen) 1 mg SQ UD PRN; Protocol PRN Reason: Hypoglycemia Protocol Stop: 06/21/18 15:31 Glucose (Dex4 Glucose) 4 - 8 tabs PO UD PRN; Protocol PRN Reason: Hypoglycemia Protocol Stop: 06/21/18 15:31 Glucose (Glucose 40%) 15 - 30 gm PO UD PRN; Protocol PRN Reason: Hypoglycemia Protocol Stop: 06/21/18 15:31 Heparin Sodium (Porcine) (Heparin Sodium (Porcine)) 5,000 units SQ Q8 IAN Stop: 06/21/18 21:59 Last Admin: 05/23/18 13:58 Dose: 5,000 units Documented by: Hydralazine HCl (Apresoline) 10 mg PO Q8H PRN PRN Reason: for systolic blood pressure ab Stop: 06/21/18 19:29 Insulin Aspart (Novolog Flexpen) 0 units SC ACHS IAN Stop: 06/21/18 16:29 Last Admin: 05/23/18 12:47 Dose: Not Given Documented by: Levothyroxine Sodium (Synthroid) 75 mcg PO DAILYBB IAN Stop: 06/22/18 06:29 Last Admin: 05/23/18 05:19 Dose: 75 mcg Documented by: Lisinopril (Zestril) 40 mg PO QAM IAN Stop: 06/22/18 08:59 Last Admin: 05/23/18 07:47 Dose: 40 mg Documented by: Miscellaneous (Carbohydrates For Hypoglycemia) 15 - 30 gm PO UD PRN PRN Reason: Hypoglycemia Treatment Stop: 06/21/18 15:31 Ranitidine HCl (Zantac) 150 mg PO BID IAN Stop: 06/21/18 20:59 Last Admin: 05/23/18 07:48 Dose: 150 mg Documented by: Spironolactone (Aldactone) 12.5 mg PO DAILY IAN Stop: 06/22/18 11:14 Last Admin: 05/23/18 12:48 Dose: 12.5 mg Documented by: Vitamin D (Vitamin D3) 1,000 units PO DAILY IAN Stop: 06/22/18 08:59 Last Admin: 05/23/18 07:48 Dose: 1,000 units Documented by:
--- NOTE | 2018-05-23 14:55 | Hospitalist Progress Note ---
Date of Service May 23, 2018 Assessment & Plan (1) Hypertensive urgency: Lisinopril increased to 40mg daily Started on Coreg, Aldactone Hydralazine PRN Monitor BP Abnormal EKG Troponin X 2: Negative ECHO: small sized inferior wall motion abnormality with akinesis of the basal inferior segment Denies chest pain Cardiology consulted Continue Aspirin, lipitor May need stress test DM II: A1C: 9.2 Continue ISS, lantus Hold PO meds Hypothyroidism TSH: normal continue levothyroxine Generalized weakness PT/OT Gout No acute issues H/O Asthma Chest X ray: No acute process Code Status: Full Code Family Contact : Avis [phone] Subjective Patient is seen and examined at bedside Denies any chest pain, SOB, dizziness, nausea, abd pain Reports +flatus Family at bedside Physical Exam Vital Signs (Past 24 Hours): Last Vital Signs Temp 36.2 C L 05/23/18 11:59 Pulse 66 05/23/18 11:59 Resp 18 05/23/18 11:59 BP 165/87 H 05/23/18 11:59 Pulse Ox 98 05/23/18 13:53 Physical Exam: Physical Exam: Vitals signs as noted above General Appearance:Moderately built and nourished, no apparent distress Head: normocephalic, Atraumatic Eyes: normal inspection, EOMI Neck: supple, Trachea midline Respiratory/Chest: Normal breath sounds, CTA Cardiovascular: S1, S2, No murmur Abdomen/GI:Soft, Non tender, Bowel sounds present Extremities/Musculoskelatal:normal inspection, no edema Neurologic/Psych:AAOX3, grossly no focal neurological deficits Skin: normal color, warm Results & Data Laboratory Results [facility] 05/23/18 06:19 Sodium 139 Potassium 3.7 Chloride 106 Carbon Dioxide 26 BUN 17 Creatinine 1.16 Glucose 78 Calcium 8.7 Cardiac Enzymes 05/22/18 Range/Units 18:26 Troponin I < 0.015 (0-0.045) ng/ml
[2018-05-23] MEDS: INSULIN GLARGINE SOLOSTAR 100 UNITS/ML 3 ML PEN SC SCH (21:53)
[2018-05-24] MEDS: HEPARIN SOD 5,000 UNIT/0.5 ML VIAL SQ SCH ×2 (06:10→13:56)
[2018-05-24] MEDS: LEVOTHYROXINE SODIUM 75 MCG TABLET PO SCH (06:11)
[2018-05-24 06:29] LABS: Hematocrit (blood only) 41.6 % (42-52); Hemoglobin 14.3 g/dL (14.0-18.0); Mean Corpuscular Hgb Conc 34.4 g/dL (32-36); Mean Corpuscular Volume 94.5 fL (80-100); Mean Platelet Volume 9.9 fL (7.4-10.4); Platelet Count 184 K/uL (130-400); RDW Coefficient of Variation 14.2 % (11.5-14.5); RDW Standard Deviation 48.7 fL (36.4-46.3); White Blood Count 7.62 K/uL (4.8-10.8)
[2018-05-24] MEDS: ATORVASTATIN 40 MG TAB PO SCH (06:54)
[2018-05-24 07:06] LABS: BUN Creatinine Ratio 15.2 (10-20); Calcium 8.7 mg/dl (8.5-10.1); Creatinine Clr Calc Pharmacy 58.2 ml/min; Est GFR (African American) 60.1; Est GFR (Non-African American) 51.8; Magnesium 1.8 mg/dl (1.8-2.4); Potassium 4.4 mmol/L (3.5-5.1)
[2018-05-24] MEDS: INSULIN ASPART 100 UNITS/ML 3 ML PEN SC SCH ×2 (08:37→12:22)
[2018-05-24] MEDS: CHOLECALCIFEROL 1,000 UNITS TAB PO SCH (08:38)
[2018-05-24] MEDS: ASPIRIN 81 MG ECTAB PO SCH (08:38)
[2018-05-24] MEDS: CARVEDILOL 3.125 MG TAB PO SCH (08:38)
[2018-05-24] MEDS: SPIRONOLACTONE 25 MG TAB PO SCH (08:38)
[2018-05-24] MEDS: LISINOPRIL 40 MG TAB PO SCH (08:38)
[2018-05-24] MEDS: INSULIN GLARGINE SOLOSTAR 100 UNITS/ML 3 ML PEN SC SCH (08:39)
[2018-05-24 12:13] VITALS: BP 172/97; TEMP 97.5; O2SAT 94
--- NOTE | 2018-05-24 15:11 | Cardiology Progress Note ---
Date of Service May 24, 2018 Assessment & Plan (1) Hypertensive urgency: The patient's recent elevation in blood pressures are certainly new compared to his prior cardiology assessment with [facility] cardiology in 2015. Blood pressure has trended toward improvement today, with the majority of re adings in the range of a systolic blood pressure in the 140-160 range with many readings in the 150 range. He however does have some systolic readings in the 1 7180 range still within the last 24 hours. The patient had been seen for abdominal pain in the hospital December 2017. I reviewed the images of the CT and abdomen pelvis performed at that time, he has noted atherosclerosis of the abdominal aorta, without changes to suggest severe renal artery stenosis. There is no evidence of the adrenal mass noted on that imaging having been completed in December 2017. Terms of secondary causes of hypertension, a TSH was performed on 05/22 that was within normal limits. Random serum cortisol was performed at 9:26 AM that was normal at 23. I have requested plasma catecholamines and plasma metanephrines for the purpose of completeness. Domi on an renin level had also been requested. This will need to be interpreted with thought in mind that he was recently placed on an increased dose of lisinopril and therefore his renin level may be elevated, and he received 2 doses of spironolactone prior to the test. This may need to be repeated in the future off of the spironolactone depending upon the results. In terms of medications, lisinopril has been increased to 40 mg daily. Carvedilol 3.125 mg twice daily was added, and I am going to increase this to 6.25 mg twice daily. He is on spironolactone 25 mg p.o. daily. I think it is reasonable to have his blood pressure repeated, and if we have the reading that is in the systolic range of 150s and diastolic range of 80s, that would be a reasonable progress. Patient does have a home upper arm blood pressure cuff, and he needs to take his blood pressure at least once a day and I think our short-term goal should be a systolic blood pressure in the range of 150-169, with future goal of trying to get this closer to 140s, and then work our way down from there. He is stable from my standpoint for discharge with these medication changes, for follow-up with primary care and cardiology. (2) Abnormal EKG: New T wave inversions. Proceed with outpatient pharmacologic nuclear stress test as outpatient. Subjective Chief complaint: Follow-up elevated blood pressure Subjective: Patient feeling well. Ambulate in the hallway. Denies any chest d iscomfort, headache, lightheadedness or dizziness. Physical Exam Vital Signs (Past 24 Hours): Last Vital Signs Temp 36.4 C L 05/24/18 12:13 Pulse 79 05/24/18 12:13 Resp 16 05/24/18 12:13 BP 172/97 H 05/24/18 12:13 Pulse Ox 94 05/24/18 12:13 Physical Exam: General: no acute distress and stated age Eyes: conjunctiva are pink and non-injected, sclera clear Neck: normal jugular venous pulse, no hepatojugular reflux Chest: normal shape and normal respiratory effort Lungs: clear to auscultation and percussion Cardiac Exam: - regular heart sounds, no murmurs, rubs, or gallops, no jugular venous distention Abdomen: abdomen soft, non-tender, no abnormal masses and no hepatosplenomegaly Musculoskeletal: no gait disturbance, no weakness Extremities: no edema and no cyanosis Neuro:awake, coversant, follows commands, no focal motor deficits Results & Data Laboratory Results Cardiac Enzymes 05/23/18 Range/Units 15:01 Troponin I < 0.015 (0-0.045) ng/ml CBC 05/24/18 Range/Units 06:02 WBC 7.62 (4.8-10.8) K/uL RBC 4.40 L (4.7-6.1) M/uL Hgb 14.3 (14.0-18.0) g/dL Hct 41.6 L (42-52) % Plt Count 184 (130-400) K/uL Comprehensive Metabolic Panel 05/24/18 Range/Units 06:02 Sodium 137 (136-145) mmol/L Potassium 4.4 D (3.5-5.1) mmol/L Chloride 104 (98-107) mmol/L Carbon Dioxide 27 (21-32) mmol/L BUN 20 H (7-18) mg/dl Creatinine 1.34 (0.6-1.4) mg/dl Glucose 140 H (70-99) mg/dl Calcium 8.7 (8.5-10.1) mg/dl Intake and Output 0305/24/18 05/24/18 06:59 14:59 22:59 Intake Total 300 / 1360 240 / 240 Balance 300 / 1360 240 / 240 Intake: Oral 300 / 1360 240 / 240
--- NOTE | 2018-05-24 16:13 | Hospitalist Progress Note ---
Date of Service May 24, 2018 Assessment & Plan (1) Hypertensive urgency: Lisinopril increased to 40mg daily Started on Coreg, Aldactone Hydralazine PRN Monitor BP Abnormal EKG Troponin X 2: Negative ECHO: small sized inferior wall motion abnormality with akinesis of the basal inferior segment Denies chest pain Appreciate Cardiology Input Continue Aspirin, lipitor Plan for stress test as outpatient DM II: A1C: 9.2 Continue ISS, lantus Hold PO meds Hypothyroidism TSH: normal continue levothyroxine Generalized weakness PT/OT Gout No acute issues H/O Asthma Chest X ray: No acute process Code Status: Full Code Family Contact : Avis [phone] Subjective Patient is seen and examined at bedside States feeling well today Denies any chest pain, SOB, dizziness, nausea, abd pain Family at bedside Discussed with Cardiology today Physical Exam Vital Signs (Past 24 Hours): Last Vital Signs Temp 36.4 C L 05/24/18 12:13 Pulse 79 05/24/18 12:13 Resp 16 05/24/18 12:13 BP 172/97 H 05/24/18 12:13 Pulse Ox 94 05/24/18 12:13 Physical Exam: Physical Exam: Vitals signs as noted above General Appearance:Moderately built and nourished, no apparent distress Head: normocephalic, Atraumatic Eyes: normal inspection, EOMI Neck: supple, Trachea midline Respiratory/Chest: Normal breath sounds, CTA Cardiovascular: S1, S2, No murmur Abdomen/GI:Soft, Non tender, Bowel sounds present Extremities/Musculoskelatal:normal inspection, no edema Neurologic/Psych:AAOX3, grossly no focal neurological deficits Skin: normal color, warm Results & Data Laboratory Results Short CBC 05/24/18 Range/Units 06:02 WBC 7.62 (4.8-10.8) K/uL Hgb 14.3 (14.0-18.0) g/dL Hct 41.6 L (42-52) % Plt Count 184 (130-400) K/uL BMP 05/24/18 06:02 Sodium 137 Potassium 4.4 D Chloride 104 Carbon Dioxide 27 BUN 20 H Creatinine 1.34 Glucose 140 H Calcium 8.7
--- NOTE | 2018-05-24 16:20 | Discharge Summary ---
"Date of Service May 24, 2018 Admission HPI Per Admitting Provider Kiannaмарина Lacy Villa is a 73 year old male who presents to outpatient clinic to see Mendy Brewer PA-C (Physician [employer]) and sent to emergency room for further evaluation because of abnormal EKG in clinic shows LVH with ST and T wave changes in the lateral leads and patient may have had reported chest pain and was being a poor historian when accompanied by his that there was concern for confusion (patient also had miscellaneous complaints about having poor energy since being diagnosed with bronchitis on 04/27/2018 and treated with Zithromax and albuterol inhaler at that time. His outpatient clinic notes had documented normal vital signs BP 148/82 | Pulse 78 | Temp (Src) 97.2 (Tympanic) | Resp 18. Patient declined transport by EMS and instead took personal transport to be driven to the hospital In the Emergency room, patient noted to have hypertension/hypertensive urgency with blood pressure 229/82 and repeat blood pressure 181/92 Patient received labetalol 10 mg IV with IV fluids also had aspirin 324 given to patient as EKG on presentation with heart rate 59 bpm and computer reading St and T wave abnormality and consider lateral ischemia After ED physician had presented patient to hospitalist for further observation, patient's vitals relatively normal with blood pressure 159/81 and heart rate 59 bpm. Patient is alert and oriented with at bedside. He denies active chest pain and denies mentioning chest pain to outpatient provider. He said his main concern for going to primary care doctor was because he had coughing spell earlier today and he was concerned for pneumonia. Patient reports feeling less energy recently but denies problems with walking Review of typical at home blood pressure readings as documented by patient's with some systolic readings above 160 and occasional systolic of 180 while on lisinopril 10 mg daily alone Review of typical at home glucose readings as documented by patient's while on Basgalar 50 units qhs and a sliding scale insulin with glucose levels in 200s but generally under 300s Patient denies smoking history Family history of mother with heart attack at age 54 Family History of father with COPD Admission Exam Per Admitting Provider Eyes: PERRL, conjunctivae normal, anicteric sclerae EOM intact bilaterally ENMT: external ear and nose normal, oropharynx normal Neck: trachea midline, no thyromegaly Respiratory: normal respiratory effort, lungs clear to auscultation Cardiovascular: Rate/Rhythm: regular rhythm and + bradycardic Gastrointestinal (Abdomen): normal bowel sounds, soft, nontender, no hepatosplenomegaly Musculoskeletal: Head/Neck/Chest: normocephalic and head atraumatic Neurologic: PERRL, EOMI, accommodation nl, no face palsy, no dysarthria Psychiatric: A+Ox3, euthymic affect Principal Diagnosis Discharge Information Discharge Diagnosis Hypertensive Urgency Abnormal EKG Discharge Goals Decrease discomfort,Improve function,Improve disease control Discharge Activity Limitations Per instructions/follow-up Discharge Data Allergies Allergy/AdvReac Type Severity Reaction Status Date / Time Sulfa (Sulfonamide Allergy Unknown RASH Verified 01/02/18 14:13 Antibiotics) Consultations 05/22/18 13:34 ED Decision to Admit Stat 05/22/18 15:32 Consult Case Management - Discharge Planning Routine 05/22/18 19:29 Consult Cardiology Routine Procedures Performed CXR: No acute process Hospital Course (1) Hypertensive urgency: Lisinopril increased to 40mg daily Started on Coreg, Aldactone Hydralazine PRN Monitor BP Abnormal EKG Troponin X 2: Negative ECHO: small sized inferior wall motion abnormality with akinesis of the basal inferior segment Denies chest pain Appreciate Cardiology Input Continue Aspirin, lipitor Plan for stress test as outpatient DM II: A1C: 9.2 Continue ISS, lantus Hold PO meds Hypothyroidism TSH: normal continue levothyroxine Generalized weakness PT/OT Gout No acute issues H/O Asthma Chest X ray: No acute process Code Status: Full Code Family Contact : Avis [phone] Total Time Total Time Spent Total Time Spent (In Minutes): 38 minutes Total Time Includes: Examination of the Patient, Discharge Planning, Medication Reconciliation, Communication With Other Providers and Other Discharge Plan Discharge Items Patient Disposition: Home - Self-Care Reason For Visit: HYPERTENSION,ABNORMAL EKG Discharge Diagnosis: Hypertensive Urgency Abnormal EKG Discharge Goals: Decrease discomfort, Improve disease control and Improve function Activity: Per 'Additional Instructions' section Exercise/Sports: Gradually increase as tolerated Non-emergency contact: Primary Care Provider and Metal Solderer Call non-emergency contact if: you have any medication questions, your symptoms worsen, your pain is not controlled, your pain is worsening, your pain is unusual for you, your pain is concerning for you and you have a fever Follow-up/Referrals: Jens Lagne [Primary Care Provider] - Diet: Carb Consistent or DM2 and Heart Healthy Addtl Provider Instructions: Follow up with on May 30, 2018 at 10:05 Am Follow up with your Metal Solderer on May 31, 2018 at 10:15AM Get Stress test done as outpatient as advised Seek immediate medical attention if your symptoms reoccur or worsen Prescriptions: New atorvastatin 40 mg Tablet 40 mg PO QAM 30 Days Qty: 30 RF: 0 carvedilol 6.25 mg Tablet 6.25 mg PO BID 30 Days Qty: 60 RF: 1 lisinopril [Zestril] 40 mg Tablet 40 mg PO QAM 30 Days Qty: 30 RF: 1 spironolactone 25 mg Tablet 12.5 mg PO DAILY 30 Days Qty: 15 RF: 1 Continued aspirin [Aspir-81] 81 mg Tablet,Delayed Release (Dr/Ec) 81 mg PO DAILY RF: 0 levothyroxine 75 mcg Tablet 75 mcg PO DAILY RF: 0 ranitidine HCl 150 mg Tablet 150 mg PO BID RF: 0 indomethacin 25 mg Capsule 25 mg PO QID RF: 0 allopurinol 300 mg tablet 300 mg PO DAILY RF: 0 cholecalciferol (vitamin D3) [Vitamin D3] 1,000 unit Capsule 1,000 unit PO DAILY RF: 0 insulin aspart U-100 100 unit/mL insulin pen 1 dose subcut AC RF: 0 magnesium chloride [Mag 64] 64 mg Tablet,Delayed Release (Dr/Ec) 64 mg PO DAILY RF: 0 albuterol sulfate [Ventolin HFA] 90 mcg/actuation HFA aerosol inhaler 2 puff Inhalation Q4H PRN (Reason: Shortness Of Breath Or Wheezing) RF: 0 metformin 500 mg tablet extended release 24 hr 500 mg PO QAM RF: 0 Basaglar KwikPen U-100 Insulin 100 unit/mL (3 mL) insulin pen 50 units subcut HS RF: 0 Discontinued lisinopril 10 mg tablet 10 mg PO DAILY RF: 0 Stand-Alone Forms: [facility]charge Orders: Discharge Order (Routine); Ordered 05/24/18 Ordered By: Reji Andersen Admission Data Admit Date/Time: 05/22/18 14:02 Attending Provider: Reji Andersen Admit Provider: Junior Howard Primary Care Provider: Jens Lange Other Providers: Junior Howard ; Satish Mcmahon ; Adonis Bedoya ; Jayy Iglesias ; Chris Mckeon ; [place] ; Manuel Estrada ; Jessenia Granger ; Birdie Hendrickson Service: Telemetry Medical Other Interventions: Discharge Summary Assessment (RN) Last Done: 05/24/18 16:23 Pending Studies at Discharge: No DC Date/Time DO NOT enter until pt leaves facility: 05/24/18 17:00"
[2018-05-24 16:24] VITALS: PULSE 66
[2018-05-24] MEDS ORDERED: CARVEDILOL 6.25 MG TAB PO SCH (21:00)
== END 2018-05-24 17:00 | disposition home or self-care (01) ==
LOC: ED 11:47 → 2N 11:47 → SUATTDRO 14:02 → 2N 15:16

== ENCOUNTER 2023-12-26 10:35 | Inpatient (IN) ==
[2023-12-26 11:22] LABS: Basophils # (auto) 0.05 K/uL (0.00-0.20); Basophils % (auto) 0.4 %; Eosinophils # (auto) 0.01 K/uL (0.00-0.50); Eosinophils % (auto) 0.1 %; Hematocrit (blood only) 29.6 % (42.0-52.0); Hemoglobin 9.7 g/dl (14.0-18.0); Immature Granulocytes # (auto) 0.06 K/uL (0.01-0.20); Immature Granulocytes % (auto) 0.5 %; Lymphocytes # (auto) 0.83 K/uL (1.20-3.40); Lymphocytes % (auto) 7.4 %; Mean Corpuscular Hemoglobin 31.3 pg (25.0-34.0); Mean Corpuscular Hgb Conc 32.8 g/dL (32.0-36.0); Mean Corpuscular Volume 95.5 fL (80.0-100.0); Mean Platelet Volume 10.1 fL (9.4-12.4); Monocytes # (auto) 0.84 K/uL (0.11-0.59); Monocytes % (auto) 7.5 %; Neutrophils # (auto) 9.41 K/uL (1.40-6.50); Neutrophils % (auto) 84.1 %; Platelet Count 158 K/uL (130-400); RDW Coefficient of Variation 15.9 % (11.5-14.5); RDW Standard Deviation 55.6 fL (36.4-46.3)
[2023-12-26] MEDS: SODIUM CHLORIDE 0.9% 1,000 ML IV ONE (11:24)
[2023-12-26 11:35] LABS: Alanine Aminotransferase 8 U/L (7-52); Albumin Globulin Ratio 0.9 (0.9-2); Albumin Level 3.4 gm/dl (3.4-5.0); Alkaline Phosphatase 70 U/L (34-104); Anion Gap 9 (3-11); Aspartate Aminotransferase 10 U/L (13-39); BUN Creatinine Ratio 17.8 (10-20); Bilirubin,Total 0.6 mg/dl (0.2-1.0); Blood Urea Nitrogen 37 mg/dl (6-23); Carbon Dioxide 22 mmol/L (21-32); Chloride 102 mmol/L (98-107); Globulin 3.8 gm/dl (2.5-4.0); Glucose 251 mg/dl (70-99(Fasting)); Potassium 4.5 mmol/L (3.5-5.1); Sodium 133 mmol/L (136-145); Total Protein 7.2 gm/dl (6.0-8.3)
[2023-12-26 11:47] LABS: Base Excess VBG -4.2 mEq/L; HCO3 VBG 21 mmol/L; Oxygen Saturation VBG < 60.0 %; PCO2 VBG 38 mmHg (38-50); PO2 VBG 31 mmHg; pH VBG 7.35 (7.36-7.41)
--- NOTE | 2023-12-26 11:47 | XRay Report ---
XR chest 1V portable CLINICAL HISTORY: Cough. COMPARISON STUDY: Chest radiograph August 22, 2023. FINDINGS: There are median sternotomy wires and mediastinal surgical clips. Cardiomegaly is noted. Th ere is no pneumothorax or pleural effusion. There are apparent patchy bilateral airspace opacities. T here is no evidence for overt pulmonary edema. IMPRESSION: 1. Apparent patchy bilateral airspace opacities which favor an infectious process. Radiographic follo w-up to ensure resolution is recommended. 2. Cardiomegaly. ACT 112: Negative or not required by law. Electronically signed by: Anatoly Trevino M.D. 12/26/2023 11:46 AM
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
--- NOTE | 2023-12-26 12:23 | CT Scan Report ---
CT OF THE HEAD WITHOUT CONTRAST CLINICAL HISTORY: weakness COMPARISON STUDY: No previous studies for comparison. TECHNIQUE: Helical axial images of the head were obtained without IV contrast. Automated exposure con trol was utilized for the study. A dose lowering technique was utilized adhering to the principles o f ALARA. FINDINGS: No acute intracranial hemorrhage, midline shift or mass effect is present. The ventricular system is unremarkable. The basal cisterns are patent. No extra-axial collections are present. There are no findings to suggest acute dural sinus thrombosis or acute territorial infarct. There are no ca lvarial fractures. Left orbital fixation is incidentally noted. IMPRESSION: No acute intracranial findings. ACT 112: Negative or not required by law. Electronically signed by: Anatoly Trevino M.D. 12/26/2023 12:22 PM
[2023-12-26 12:24] LABS: Troponin I High Sensitivity 15.8 pg/ml (0-20)
[2023-12-26] MEDS: CEFEPIME 2,000 MG/20 ML VIAL IV STA (12:26)
[2023-12-26 12:37] LABS: Influenza A virus by PCR Negative (Neg); Influenza B virus by PCR Negative (Neg); RSV by PCR Negative (Neg); SARS CoV2 RNA(COVID-19) Ceph NEGATIVE (Negative)
--- NOTE | 2023-12-26 13:23 | CT Scan Report ---
CT SCAN OF THE ABDOMEN AND PELVIS WITHOUT IV CONTRAST CLINICAL HISTORY: Generalized abdominal pain. COMPARISON STUDY: Abdominal CT dated 07/04/2023. TECHNIQUE: CT scan of the abdomen and pelvis is performed from the lung bases to the proximal femora. Images are reviewed in the axial, sagittal, and coronal planes. IV contrast was not administered for this examination. Note that the examination was performed in suboptimal fashion without oral or IV c ontrast. There is also significant motion artifact. A dose lowering technique was utilized adhering t o the principles of ALARA. CT DOSE: 2130.07 mGy.cm FINDINGS: Lung bases: The patient is status post midline sternotomy. The heart is enlarged and without pericard ial effusion. The coronary arteries are densely calcified. There is diminished attenuation of the car diac blood pool as compared to the myocardium suggesting anemia. Scarring/atelectasis is noted at the lung bases. There are scattered calcified granulomas. No airspace consolidation or pleural effusion is identified. There is a small hiatal hernia. Liver: The unenhanced liver is normal in size, contour, and attenuation. There is no intrahepatic paola iary ductal dilatation. Gallbladder: Surgically absent noting clips in the gallbladder fossa. Spleen: Normal in size and attenuation. There are calcified splenic granulomas. Pancreas: The unenhanced pancreas is mildly atrophic and grossly unremarkable. Adrenal glands: Unremarkable. Kidneys: The unenhanced kidneys are normal in size. A renal sinus cyst versus hydronephrosis of the l eft upper pole collecting system is unchanged from previous. There is asymmetric left-sided perinephr ic stranding which is new from previous. Question focal urothelial thickening versus a low-density st one at the ureteropelvic junction on image #[id number]. The left ureter is normal in caliber No hydronephros is is seen on the right. There are no renal calculi identified. There is no evidence of contour defor dena renal mass lesion. Abdominal vasculature: The abdominal aorta is normal in course and caliber noting moderate to advance d atherosclerotic calcification. Bowel: There is mild colonic diverticulosis without CT evidence of acute diverticulitis. No bowel obs truction is seen. There is mild/moderate colonic fecal retention. The appendix is well-visualized an d normal. Peritoneum: There is trace fluid in the left paracolic gutter and pelvis. No intraperitoneal free air is identified. There is a small fat-containing umbilical hernia. Lymphadenopathy: None. Pelvic viscera: The prostate gland is enlarged and heterogeneous. The bladder wall is thickened/trabe culated indicating chronic obstruction. Skeletal structures: The skeletal structures are osteopenic. There is moderate to advanced lumbosacra l spondylosis. No lytic or blastic lesions are seen. There are subacute/healing left anterior rib fra ctures. These are new from 07/04/2023. IMPRESSION: 1. Suboptimal examination without oral or IV contrast. There is also significant motion artifact. 2. There is a renal sinus cyst versus hydronephrosis of the left upper pole collecting system. This i s similar to the 07/04/2023 examination, and hydronephrosis is favored. Left-sided perinephric strandi ng and fluid is new from 07/04/2023, and there may be an obstructing low density stone versus urotheli al thickening at the ureteropelvic junction. Correlate with clinical findings and urinalysis. Follow up with urology is advised. 3. Mild colonic diverticulosis without CT evidence of acute diverticulosis. 4. Cardiomegaly with evidence of anemia. 5. Additional findings as above. ACT 112: Negative or not required by law. Electronically signed by: Hussein Chi M.D. 12/26/2023 1:20 PM
[2023-12-26 13:45] LABS: Appearance Urine Turbid (Clear); Bacteria Urine Automated 4+ (None Seen); Bilirubin Urine Negative (Negative); Blood Urine 3+ (Negative); Color Urine Yellow; Epithelial Cell Urine Auto 0-2 /hpf (0-2); Glucose Urine UA Negative (Negative); Ketones Urine Negative (Negative); Leukocyte Esterase Urine 3+ (Negative); Nitrite Urine Positive (Negative); Protein Urine 2+ (Negative); RBC Urine Automated >20 /hpf (0-2); Specific Gravity Urine 1.014 (1.000-1.030); Urobilinogen Urine Negative (Negative); WBC Urine Automated >50 /hpf (0-5); pH Urine 5.5 (4.5-7.5)
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
[2023-12-26] MEDS: SODIUM CHLORIDE 0.9% 500 ML IV ONE (14:33)
[2023-12-26 15:05] LABS: Magnesium 1.1 mg/dl (1.7-2.4)
--- NOTE | 2023-12-26 15:26 | Electrocardiogram Report ---
Test Reason : Blood Pressure : */* mmHG Vent. Rate : 95 BPM Atrial Rate : 95 BPM P-R Int : 168 ms QRS Dur : 94 ms QT Int : 356 ms P-R-T Axes : 44 27 150 degrees QTcB Int : 447 ms Normal sinus rhythm Low voltage QRS Cannot rule out Anteroseptal infarct (cited on or before 03-Oct-2020) Abnormal ECG When compared with ECG of 05-Jun-2023 10:11, (unconfirmed) ST less depressed in Lateral leads T wave inversion less evident in Lateral leads Confirmed by Darius Jack ([id number]) on 12/26/2023 3:25:57 PM Referred By: REFERRED SELF Confirmed By: Darius Jack
[2023-12-26] MEDS: SODIUM CHLORIDE 0.9% 1,000 ML IV SCH (15:28)
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
[2023-12-26] MEDS: MAGNESIUM SULFATE / D5W 1 GM/100 ML BAG IV SCH (15:47)
[2023-12-26] MEDS ORDERED: GLUCOSE 40% GEL 15 GM TUBE PO PRN (17:05)
[2023-12-26] MEDS ORDERED: GLUCAGON FOR INJ 1 MG VIAL SQ PRN (17:05)
[2023-12-26] MEDS ORDERED: ALUMINUM/MAGNESIUM SUSP 30 ML UDC PO PRN (17:05)
[2023-12-26] MEDS ORDERED: MAGNESIUM HYDROXIDE SUSP 30 ML UDC PO PRN (17:05)
[2023-12-26] MEDS ORDERED: DEXTROSE 50% 50 ML SYRINGE IV PRN (17:05)
[2023-12-26] MEDS ORDERED: CARBOHYDRATES FOR HYPOGLYCEMIA PO PRN (17:05)
[2023-12-26] MEDS ORDERED: ALBUTEROL HFA 8 GM INHALER INH PRN (17:05)
[2023-12-26] MEDS ORDERED: GLUCOSE 10 TAB/TUBE PO PRN (17:05)
[2023-12-26] MEDS ORDERED: MELATONIN 3 MG TAB PO PRN (17:05)
[2023-12-26] MEDS ORDERED: ONDANSETRON INJ 2 MG/ML 2 ML VIAL IV PRN (17:05)
[2023-12-26] MEDS ORDERED: ACETAMINOPHEN 325 MG TAB PO PRN (17:05)
[2023-12-26] MEDS: CEFEPIME 1000MG 1,000 MG/10 ML SYR IV ONE (17:58)
[2023-12-26] MEDS: INSULIN ASPART PER UNIT CHARGE SC SCH (18:32)
[2023-12-26] MEDS: METOPROLOL TARTRATE 25 MG TAB PO SCH (21:45)
[2023-12-26] MEDS: LANTUS PER UNIT CHARGE SQ SCH (21:51)
[2023-12-26] MEDS: cefTRIAXone SODIUM 2,000 MG/50 ML BAG IV SCH (23:37)
[2023-12-27] MEDS ORDERED: CEFEPIME 1000MG 1,000 MG/10 ML SYR IV ONE
[2023-12-27 06:11] LABS: Basophils # (auto) 0.03 K/uL (0.00-0.20); Basophils % (auto) 0.4 %; Eosinophils # (auto) 0.07 K/uL (0.00-0.50); Eosinophils % (auto) 0.8 %; Hematocrit (blood only) 23.3 % (42.0-52.0); Hemoglobin 7.8 g/dl (14.0-18.0); Immature Granulocytes # (auto) 0.05 K/uL (0.01-0.20); Immature Granulocytes % (auto) 0.6 %; Lymphocytes # (auto) 0.96 K/uL (1.20-3.40); Lymphocytes % (auto) 11.3 %; Mean Corpuscular Hemoglobin 31.6 pg (25.0-34.0); Mean Corpuscular Hgb Conc 33.5 g/dL (32.0-36.0); Mean Corpuscular Volume 94.3 fL (80.0-100.0); Mean Platelet Volume 10.6 fL (9.4-12.4); Monocytes % (auto) 9.4 %; Neutrophils # (auto) 6.59 K/uL (1.40-6.50); Neutrophils % (auto) 77.5 %; Platelet Count 133 K/uL (130-400); RDW Coefficient of Variation 15.5 % (11.5-14.5); Red Blood Count 2.47 M/uL (4.70-6.10)
[2023-12-27 06:25] LABS: BUN Creatinine Ratio 20.1 (10-20); Calcium 8.1 mg/dl (8.6-10.3); Creatinine Clr Calc Pharmacy 38.9 ml/min; Magnesium 1.4 mg/dl (1.7-2.4); Potassium 3.9 mmol/L (3.5-5.1)
[2023-12-27 06:34] LABS: Polychromasia 1+
[2023-12-27 06:40] LABS: Thyroid Stimulating Hormone 2.399 uIu/ml (0.300-4.500)
[2023-12-27] MEDS: LEVOTHYROXINE SODIUM 75 MCG TABLET PO SCH (06:44)
--- NOTE | 2023-12-27 07:43 | Urology Progress Note ---
Date of Service December 27, 2023 Assessment & Plan (1) Acute pyelonephritis: Plan 78yo/M who presented with weakness and ill-feelings and is admitted with suspected UTI, RADHA on CKD, and possible left sided hydronephrosis vs renal sinus cyst. - He is afebrile with stable vitals at present. - Labs show leukocytosis resolved and creatinine 2.08-1.69 today. - Urine culture prelim gram negative bacilli; Blood culture pending. - He is voiding spontaneously. - CT imaging showing possible left hydronephrosis vs. renal sinus cyst. Prior renal ultrasound imaging noted a left renal sinus cyst so this seems more likely, however we will monitor closely. - Continue with conservative management with IV antibiotics and close monitoring. - No plan for urological intervention. OK for diet from standpoint. - Recommend checking bladder scans/PVR to ensure he is emptying. If he is found to be in urinary retention, would recommend [place] catheter placement. - Can consider addition of tamsulosin. - Continue to trend labs. - Continue supportive care. - Urology will follow along. Please call with any questions/concerns. Admission and Anticipated Discharge Date Admission Date: December 26, 2023 Subjective Pt seen at bedside this AM Awake, sitting up in bed on arrival No acute distress He still complains of some weakness Denies abdominal, flank, and suprapubic pain Denies f/c/n/v Voiding without issue Denies hematuria or dysuria Review of Systems Constitutional: as per Subjective / HPI Genitourinary: + as per Subjective / HPI Physical Exam Constitutional: no acute distress Respiratory: no respiratory distress and no labored breathing Neurologic: awake Psychiatric: A+Ox3, euthymic affect Results & Data Vital Signs (Past 12 Hours) Vital Signs Temp Pulse Resp BP Pulse Ox O2 Del Method 12/26/23 21:02 36.8 C 98 H 18 151/76 H 97 Room Air PG Care Time/CCT Total # of Minutes Spent Total Time Spent with Patient: Total time spent is greater than 50% in coordination of care (as documented) at patient's floor/unit and/or counseling patient: Coding Level of Care Code 74894 SUB INP/OBS CARE 2/35MIN Diagnoses Acute pyelonephritis N10
[2023-12-27 07:58] LABS: Estimated Average Glucose 177 mg/dl; Hemoglobin A1C 7.8 % (4.5-5.6)
[2023-12-27] MEDS: INFLUENZA VACC TS2024-25(65y+)/PF (IIV3) 0.5mL Syr IM ONE (08:21)
[2023-12-27] MEDS: ASPIRIN 81 MG ECTAB PO SCH (08:24)
[2023-12-27] MEDS: ENOXAPARIN INJ 40 MG/0.4 ML SYR SQ SCH (08:24)
[2023-12-27] MEDS: ATORVASTATIN 40 MG TAB PO SCH (08:24)
[2023-12-27] MEDS: PANTOprazole 40 MG TAB PO SCH (08:24)
[2023-12-27] MEDS ORDERED: cefTRIAXone SODIUM 2,000 MG/50 ML BAG IV SCH (09:00)
--- NOTE | 2023-12-27 18:45 | Hospitalist Progress Note ---
Date of Service December 27, 2023 Assessment & Plan (1) Acute pyelonephritis: Plan: - Full admit to med/surg - Urine and blood culture (x1) obtained, pending, follow - Received one dose of cefepime in ED, will change to ceftriaxone 2g IV daily, to start in AM - Received 2L of NSS in ED, will place on mIVF with NSS @ 100 ml/hr and stop at 0800 in AM - APAP as needed for fever or pain - Zofran as needed for N/V - Follow up am labs including CBC, BMP, and mag Awaiting blood cultures on 12/26 Patient remains afebrile (2) Hydronephrosis: Plan: Acute finding on CT - hydro versus cyst - Appreciate urology consult - No surgical intervention scheduled. (3) Acute kidney injury: Plan: RADHA on CKD stage 3b - Creatinine 2.08 with baseline creatinine 1.6-1.8 - Hydrate with IVF and re-eval with BMP in AM - Avoid nephrotoxins and renally adjust meds when appropriate (4) Hypomagnesemia: Plan: Acute - Mag reviewed and low at 1.1 - Mag Sulfate 1g IV x2 doses ordered - Repeat Mag level in AM Plan Chronic medical issues: - CAD s/p CABG - continue aspirin, atorvastatin, lopressor - Hypothyroidism - continue levothyroxine - GERD - continue protonix - DMT2, insulin dependent - continue lantus (split dose) 11u BID and lispro SSI with meals, CR 12, CF 35. ACHS blood sugar checks. - HTN - continue lopressor DMT2 diet, NPO after MN. VTE ppx with Lovenox 40mg sq daily to start in AM. AM labs ordered as noted above. Case has been d/w Dr. Jackson. Further orders as warranted by attending. Admission and Anticipated Discharge Date Admission Date: December 26, 2023 Subjective Patient reports no new symptoms. Review of Systems Review of Systems: All systems reviewed & are unremarkable except as noted in HPI & below Physical Exam Physical Exam: GENERAL: 78 yo well-nourished elderly M. NAD. EYES: EOMI. PERRLA. Anicteric. HENT: Moist mucous membranes. No scleral icterus. No cervical lymphadenopathy. LUNGS: Clear to auscultation bilaterally. No W/R/R. CARDIOVASCULAR: Regular rate and rhythm. No M/G/R. No JVD. ABDOMEN: Soft, non-tender and non-distended. BS normoactive x 4 quad. EXTREMITIES: No edema. Non-tender. Peripheral pulses +2/4. NEUROLOGIC: A&O x3. No focal neurological deficits. CN II-XII grossly intact. PSYCHIATRIC: Cooperative. Appropriate mood and affect. SKIN: Warm, dry, intact. No rashes or lesions. Results & Data Results & Data Vital Signs (Past 12 Hours) Vital Signs Temp Pulse Resp BP Pulse Ox O2 Del Method 12/27/23 14:16 36.7 C 83 16 121/69 97 Room Air 12/27/23 08:00 Room Air 12/27/23 07:42 36.2 C L 88 18 135/72 96 Room Air PG Care Time/CCT Total # of Minutes Spent Total Time Spent with Patient: Total time spent is greater than 50% in coordination of care (as documented) at patient's floor/unit and/or counseling patient: Coding Level of Care Code 89045 SUB INP/OBS CARE 2/35MIN Diagnoses Acute pyelonephritis N10 Hydronephrosis N13.30 Hydronephrosis type: unspecified Acute kidney injury N17.9 Hypomagnesemia E83.42 (2) Hydronephrosis Hydronephrosis type: unspecified Qualified Code(s): N13.30 - Unspecified hydronephrosis
[2023-12-27 19:21] LABS: Hematocrit (blood only) 26.1 % (42.0-52.0); Hemoglobin 8.2 g/dl (14.0-18.0)
[2023-12-28 06:22] LABS: Hematocrit (blood only) 24.4 % (42.0-52.0); Hemoglobin 7.9 g/dl (14.0-18.0); Mean Corpuscular Hemoglobin 31.1 pg (25.0-34.0); Mean Corpuscular Hgb Conc 32.4 g/dL (32.0-36.0); Mean Corpuscular Volume 96.1 fL (80.0-100.0); Mean Platelet Volume 10.7 fL (9.4-12.4); Platelet Count 153 K/uL (130-400); RDW Coefficient of Variation 15.7 % (11.5-14.5); RDW Standard Deviation 55.7 fL (36.4-46.3); Red Blood Count 2.54 M/uL (4.70-6.10); White Blood Count 6.84 K/ul (4.8-10.8)
[2023-12-28 06:35] LABS: BUN Creatinine Ratio 19.2 (10-20); Calcium 8.3 mg/dl (8.6-10.3); Creatinine Clr Calc Pharmacy 36.1 ml/min; Potassium 4.2 mmol/L (3.5-5.1)
[2023-12-28 07:12] VITALS: RESP 16
--- NOTE | 2023-12-28 13:42 | Urology Progress Note ---
Date of Service December 28, 2023 Assessment & Plan (1) Acute pyelonephritis: Plan 78yo/M who presented with weakness and ill-feelings and is admitted with suspected UTI, RADHA on CKD, and possible left sided hydronephrosis vs renal sinus cyst. - He is afebrile, mildly hypertensive but otherwise stable vitals - Labs show no leukocytosis and creatinine 1.82 today - Urine culture grew Klebsiella; Blood culture prelim no growth x 24 hours - He is voiding spontaneously. - CT imaging showing possible left hydronephrosis vs. renal sinus cyst. Prior renal ultrasound imaging had noted a left renal sinus cyst so this seems more likely. - He is stable without fever or flank pain. Creatinine stable with baseline being around 1.6-1.8. - No plan for urological intervention. - Recommend checking bladder scans/PVR to ensure he is emptying. If he is found to be in urinary retention, would recommend [place] catheter placement. - Can consider addition of tamsulosin. - Continue antibiotics and tailor per culture sensitivities - Continue to trend labs. - Continue supportive care. - Will arrange an outpatient follow-up with our service. - Urology will sign-off. Please call with any questions/concerns or changes in patient status. Plan reviewed with Dr. Ramos, on-call urologist. Admission and Anticipated Discharge Date Admission Date: December 26, 2023 Subjective Pt seen at bedside this AM Awake and resting in bed on arrival No acute distress Overall feeling a little better today Still with some weakness but feels this is improving Denies abdominal, flank, and suprapubic pain Denies f/c/n/v Voiding without issue and feels he is emptying his bladder Denies hematuria or dysuria Review of Systems Constitutional: as per Subjective / HPI Gastrointestinal: as per Subjective / HPI Genitourinary: + as per Subjective / HPI Physical Exam Constitutional: no acute distress Respiratory: no respiratory distress and no labored breathing Musculoskeletal: Head/Neck/Chest: normocephalic Neurologic: awake Psychiatric: Orientation: alert and cooperative Results & Data Vital Signs (Past 12 Hours) Vital Signs Temp Pulse Resp BP Pulse Ox O2 Del Method 12/28/23 07:45 Room Air 12/28/23 07:10 36.8 C 88 16 152/77 H 97 Room Air PG Care Time/CCT Total # of Minutes Spent Total Time Spent with Patient: Total time spent is greater than 50% in coordination of care (as documented) at patient's floor/unit and/or counseling patient: Coding Level of Care Code 97701 SUB INP/OBS CARE MIN Diagnoses Acute pyelonephritis N10
[2023-12-28 14:32] VITALS: BP 146/71; PULSE 84; TEMP 97.3; O2SAT 99
== END 2023-12-28 18:50 | disposition home or self-care (01) | DRG 690 ==
LOC: ED 10:35 → SUATTDRO 14:55 → 3E 14:55
DX: I12.9 Hypertensive chronic kidney disease with stage 1 through stage 4 chronic kidney disease, or unspecified chronic kidney disease; Z11.52 Encounter for screening for COVID-19; N18.32 Chronic kidney disease, stage 3b; Z79.899 Other long term (current) drug therapy; E03.9 Hypothyroidism, unspecified; N17.9 Acute kidney failure, unspecified; N13.6 Pyonephrosis; Z88.2 Allergy status to sulfonamides; I25.10 Atherosclerotic heart disease of native coronary artery without angina pectoris; E83.42 Hypomagnesemia; E11.22 Type 2 diabetes mellitus with diabetic chronic kidney disease; K21.9 Gastro-esophageal reflux disease without esophagitis; Z88.0 Allergy status to penicillin; Z79.4 Long term (current) use of insulin; Z79.82 Long term (current) use of aspirin; Z79.890 Hormone replacement therapy; Z95.1 Presence of aortocoronary bypass graft